=== PATIENT | male | born 1945 | race Two or more races ===

== ENCOUNTER → 2022-10-14 | Day surgery (SDC) | payer OTHER, MEDICAID ==
[~2022-10-14] VITALS: Ht 177.8 cm; Wt 64.4 kg
[~2022-10-14] MED LIST: CIPROFLOXACIN 400MG/200ML 200 ML IV ONE; DONE5TAB80 PO; DORZ2SOL18 OP; DexAMETHasone SOD PHOS 10MG/1ML VIAL INJ ONE; ETOMIDATE (2MG/ML) 20ML VIAL IV ONE; HYDROmorphone HCL 2 MG/ML VL/or syr IV PRN; LABETALOL HCL 5 MG/ML 4ML SYRINGE IV PRN; LEVE100012 PO; LISI20TA56 PO; MEPERIDINE HCL (50 MG/ML) 1 ML VIAL ONE; MIDAZOLAM HCL 2MG/2ML 2ml VIAL (1mg/ml) IV PRN; MIDAZOLAM HCL 2MG/2ML 2ml VIAL (1mg/ml) ONE; MORPHINE SULFATE 4 MG/ML SYR/VIAL IV PRN; ONDANSETRON HCL 4 MG/2 ML VIAL IV ONE; ONDANSETRON HCL 4 MG/2 ML VIAL IV PRN; PROPOFOL 10 MG/ML 20 ML IV ONE; SUCCINYLCHOLINE CHLORIDE 20 MG/ML 10ML VIAL IV ONE; ePHEDrine SULFATE 50 MG/ML AMP IV PRN; fentaNYL CITRATE 100 MCG/2 ML VL ONE
[2022-10-14 11:45] VITALS: TEMP 97.3; O2SAT 98
[2022-10-14 12:50] VITALS: BP 135/72; PULSE 64; RESP 12; O2SAT 94
== END | disposition home or self-care (01) ==
LOC: SUR 08:19
PROVIDERS: ATTEND Urology
DX: D49.4 Neoplasm of unspecified behavior of bladder (principal); I63.9 Cerebral infarction, unspecified; I10 Essential (primary) hypertension; Z95.0 Presence of cardiac pacemaker; Z88.0 Allergy status to penicillin; Z91.041 Radiographic dye allergy status; Z79.899 Other long term (current) drug therapy; Z98.890 Other specified postprocedural states
CPT/HCPCS: 52224; J0330; J0744; J1100; J2175; J2250; J2405; J2704; J3010

== ENCOUNTER 2022-10-27 02:53 | Inpatient (IN) | payer OTHER, MEDICAID ==
[~2022-10-27] VITALS: Ht 177.8 cm; Wt 68.8 kg
[~2022-10-27 02:53] MED LIST changes: -CIPROFLOXACIN 400MG/200ML 200 ML IV ONE; -DexAMETHasone SOD PHOS 10MG/1ML VIAL INJ ONE; -ETOMIDATE (2MG/ML) 20ML VIAL IV ONE; -HYDROmorphone HCL 2 MG/ML VL/or syr IV PRN; -LABETALOL HCL 5 MG/ML 4ML SYRINGE IV PRN; -MEPERIDINE HCL (50 MG/ML) 1 ML VIAL ONE; -MIDAZOLAM HCL 2MG/2ML 2ml VIAL (1mg/ml) IV PRN; -MIDAZOLAM HCL 2MG/2ML 2ml VIAL (1mg/ml) ONE; -MORPHINE SULFATE 4 MG/ML SYR/VIAL IV PRN; -ONDANSETRON HCL 4 MG/2 ML VIAL IV ONE; -ONDANSETRON HCL 4 MG/2 ML VIAL IV PRN; -PROPOFOL 10 MG/ML 20 ML IV ONE; -SUCCINYLCHOLINE CHLORIDE 20 MG/ML 10ML VIAL IV ONE; -ePHEDrine SULFATE 50 MG/ML AMP IV PRN; -fentaNYL CITRATE 100 MCG/2 ML VL ONE
[2022-10-27] MEDS ORDERED: ONDANSETRON HCL 4 MG/2 ML VIAL IV ONE (04:00)
[2022-10-27 04:01] LABS: Urine Bacteria NONE SEEN /hpf (None Seen); Urine Blood 3+ /uL (Negative); Urine Clarity CLOUDY (Clear); Urine Color Red (Yellow); Urine Protein, UAD 3+ (Negative); Urine Specific Gravity 1.032 (1.001-1.035); Urine WBC 75 /hpf (0 - 3)
[2022-10-27 04:09] LABS: Basophils # (auto) 0.1 10 ^3/uL (0-0.2); Basophils % (auto) 0.4 % (0.0-2.0); Eosinophils # (auto) 0.2 10 ^3/uL (0-0.8); Eosinophils % (auto) 0.8 % (0.0-7.0); Hematocrit 43.7 % (41.0-53.0); Hemoglobin 14.6 g/dL (13.5-17.5); Lymphocytes # (auto) 2.5 10 ^3/uL (0.4-5.4); Lymphocytes % (auto) 12.3 % (10.0-50.0); Mean Corpuscular Hemoglobin 33.3 pg (28.0-32.0); Mean Corpuscular Hgb Conc. 33.3 g/dL (32.0-36.0); Mean Corpuscular Volume 100.2 fL (80.0-100.0); Monocytes # (auto) 0.9 10 ^3/uL (0-1.3); Monocytes % (auto) 4.3 % (0.0-12.0); Neutrophils # (auto) 16.9 10 ^3/uL (1.6-8.6); Neutrophils % (auto) 82.2 % (37.0-80.0); Nucleated Red Blood Cells % 0.1 %; Red Blood Cells 4.36 10^6/uL (4.5-5.90); Red Cell Distribution Width 15.1 % (11.8-14.3); White Blood Cell 20.6 10^3/uL (4.4-10.8)
[2022-10-27 04:27] LABS: Alanine Aminotransferase 17 U/L (7-40); Albumin 4.6 g/dL (3.2-4.8); Alkaline Phosphatase 99 U/L (46-116); Anion Gap 9.3 (5-15); Aspartate Aminotransferase 18 U/L (13-40); BUN/Creatinine Ratio 23.1 (10.0-20.0); Bilirubin, Total 0.8 mg/dL (0.2-1.0); Blood Urea Nitrogen 24 mg/dL (9-23); Calcium 9.8 mg/dL (8.7-10.4); Carbon Dioxide 21.7 mmol/L (20-30); Chloride 104 mmol/L (98-107); Glucose 200 mg/dL (74-106); Potassium 4.1 mmol/L (3.5-5.1); Sodium 135 mmol/L (136-145); Total Protein 7.6 g/dL (5.7-8.2)
[2022-10-27] MEDS ORDERED: fentaNYL CITRATE 100 MCG/2 ML VL IV ONE (05:15)
[2022-10-27] MEDS ORDERED: cefTRIAXone 1GM/50ML D5W 50 ML IV ONE ×2 (05:15→18:39)
[2022-10-27 05:47] LABS: Lactic Acid w/Reflex 3.5 mmol/L (0.4-2.0)
[2022-10-27] MEDS ORDERED: ACETAMINOPHEN 325 MG TAB PO PRN (06:30)
[2022-10-27] MEDS ORDERED: levoFLOXacin 500 MG TAB PO ONE (06:30)
[2022-10-27] MEDS ORDERED: hydrALAZINE HCL 10 MG TAB PO PRN (06:30)
[2022-10-27] MEDS ORDERED: LIDOCAINE HCL 2% TOP JELLY 5ML TOP ONE (06:30)
[2022-10-27] MEDS ORDERED: LIDOCAINE 2% JELLY 11ml (GLYDO) ONE (07:05)
[2022-10-27] MEDS ORDERED: SODIUM CHLORIDE 0.9% 1,900 ML IV ONE ×2 (08:45→16:00)
[2022-10-27 08:51] VITALS: PULSE 86; RESP 19; O2SAT 97
[2022-10-27] MEDS: HYDROcodone-ACET 5/325MG TAB PO PRN ×2 (09:07→14:23)
[2022-10-27 09:16] LABS: Basophils # (auto) 0 10 ^3/uL (0-0.2); Basophils % (auto) 0.1 % (0.0-2.0); Eosinophils # (auto) 0 10 ^3/uL (0-0.8); Eosinophils % (auto) 0.1 % (0.0-7.0); Hematocrit 40.8 % (41.0-53.0); Hemoglobin 13.6 g/dL (13.5-17.5); Lymphocytes # (auto) 0.6 10 ^3/uL (0.4-5.4); Lymphocytes % (auto) 4.8 % (10.0-50.0); Mean Corpuscular Hemoglobin 33.2 pg (28.0-32.0); Mean Corpuscular Hgb Conc. 33.4 g/dL (32.0-36.0); Mean Corpuscular Volume 99.2 fL (80.0-100.0); Monocytes # (auto) 0.3 10 ^3/uL (0-1.3); Monocytes % (auto) 2.8 % (0.0-12.0); Neutrophils # (auto) 10.8 10 ^3/uL (1.6-8.6); Neutrophils % (auto) 92.2 % (37.0-80.0); Red Blood Cells 4.11 10^6/uL (4.5-5.90); Red Cell Distribution Width 14.9 % (11.8-14.3); White Blood Cell 11.7 10^3/uL (4.4-10.8)
[2022-10-27] MEDS ORDERED: cefTRIAXone 1GM/50ML D5W 50 ML IV SCH (10:00)
[2022-10-27] MEDS ORDERED: levETIRAcetam 500 MG TAB PO SCH (10:00)
[2022-10-27] MEDS: SODIUM CHLORIDE 0.9% 1,000 ML IV SCH ×2 (11:24→21:33)
[2022-10-27 11:27] LABS: Lactic Acid w/Reflex 2.8 mmol/L (0.4-2.0)
[2022-10-27 12:00] LABS: INR 1.03 (0.9-1.15); Partial Thromboplastin Time 29.4 SEC (24.5-34.5); Prothrombin Time 10.8 sec (9.3-11.8)
[2022-10-27] MEDS: ONDANSETRON HCL 4 MG/2 ML VIAL IV PRN (15:11)
[2022-10-27] MEDS ORDERED: PROPOFOL 10 MG/ML 20 ML IV ONE (16:19)
[2022-10-27 16:21] VITALS: BP 124/80; PULSE 79; RESP 18; TEMP 98.3; O2SAT 97
[2022-10-27 16:38] VITALS: BP 124/80; PULSE 80; RESP 79; TEMP 98.3; O2SAT 97
[2022-10-27] MEDS ORDERED: BUPIVACAINE 0.5% P/F INJ 10 ML VIAL ONE (18:18)
[2022-10-27] MEDS ORDERED: fentaNYL CITRATE 100 MCG/2 ML VL ONE (18:22)
[2022-10-27] MEDS ORDERED: ONDANSETRON HCL 4 MG/2 ML VIAL ONE (18:22)
[2022-10-27] MEDS ORDERED: MIDAZOLAM HCL 2MG/2ML 2ml VIAL (1mg/ml) ONE (18:22)
[2022-10-27] MEDS ORDERED: ASPI325T4 PO (19:12)
[2022-10-27] MEDS ORDERED: HAWTCAP PO (19:12)
[2022-10-27] MEDS ORDERED: SIMV10TA20 PO (19:14)
[2022-10-27] MEDS ORDERED: LACO100T3 PO (19:14)
[2022-10-27] MEDS ORDERED: TEST200I32 TOP (19:15)
[2022-10-27] MEDS ORDERED: MELA10CA OR (19:16)
[2022-10-27] MEDS ORDERED: SAW160CA3 PO (19:16)
[2022-10-27] MEDS ORDERED: [UNRECOGNIZED DRUG - CODE] XX (19:16)
[2022-10-27] MEDS ORDERED: LIDOCAINE 2% (LOCAL ANESTH.) PF 5ml SDV ONE ×2 (19:29→19:44)
[2022-10-27] MEDS: LIDOCAINE 4MG/ML IV SOLN 500 ML IV SCH (19:45)
[2022-10-27 20:00] VITALS: BP 119/68; PULSE 78; RESP 18; TEMP 97.5; O2SAT 96
[2022-10-27] MEDS ORDERED: MORPHINE SULFATE INJ 2 MG/ml SYRG IV PRN (20:30)
[2022-10-27] MEDS ORDERED: METOCLOPRAMIDE HCL 5MG/ml INJ 2ml VIAL IV PRN (20:30)
[2022-10-27] MEDS ORDERED: HYDROmorphone HCL 2 MG/ML VL/or syr IV PRN ×2 (20:30)
[2022-10-27] MEDS: DONEPEZIL HYDROCHLORIDE 5 MG TAB PO SCH (21:27)
[2022-10-27] MEDS: MELATONIN 5 MG TAB PO PRN (21:27)
[2022-10-27] MEDS: levETIRAcetam 500 MG TAB PO SCH (21:27)
[2022-10-27 22:00] VITALS: BP 119/68; PULSE 78; RESP 18; TEMP 97.5; O2SAT 96
[2022-10-28 05:00] VITALS: BP 121/71; PULSE 79; RESP 18; TEMP 98.2; O2SAT 99
[2022-10-28] MEDS: SODIUM CHLORIDE 0.9% 1,000 ML IV SCH ×3 (06:11→21:25)
[2022-10-28 06:22] LABS: Basophils # (auto) 0 10 ^3/uL (0-0.2); Eosinophils # (auto) 0.1 10 ^3/uL (0-0.8); Hemoglobin 11.7 g/dL (13.5-17.5); Mean Corpuscular Hgb Conc. 34.2 g/dL (32.0-36.0); Monocytes # (auto) 0.5 10 ^3/uL (0-1.3)
[2022-10-28] MEDS: HYDROcodone-ACET 5/325MG TAB PO PRN ×3 (06:23→22:35)
[2022-10-28 06:24] LABS: Basophils % (auto) 0.4 % (0.0-2.0); Chloride 112 mmol/L (98-107); Eosinophils % (auto) 0.8 % (0.0-7.0); Hematocrit 34.2 % (41.0-53.0); Lymphocytes # (auto) 1.4 10 ^3/uL (0.4-5.4); Lymphocytes % (auto) 18.2 % (10.0-50.0); Mean Corpuscular Hemoglobin 34.7 pg (28.0-32.0); Mean Corpuscular Volume 101.2 fL (80.0-100.0); Monocytes % (auto) 6.7 % (0.0-12.0); Neutrophils # (auto) 5.7 10 ^3/uL (1.6-8.6); Neutrophils % (auto) 73.9 % (37.0-80.0); Potassium 4.7 mmol/L (3.5-5.1); Red Blood Cells 3.38 10^6/uL (4.5-5.90); Red Cell Distribution Width 15.2 % (11.8-14.3); Sodium 142 mmol/L (136-145); White Blood Cell 7.7 10^3/uL (4.4-10.8)
[2022-10-28 06:25] LABS: Calcium 8.4 mg/dL (8.5-10.1)
[2022-10-28 06:29] LABS: Glucose 114 mg/dL (74-106)
[2022-10-28 06:30] LABS: BUN/Creatinine Ratio 16.7 (10.0-20.0); Blood Urea Nitrogen 14 mg/dL (9-23)
[2022-10-28 08:00] VITALS: BP 109/62; PULSE 70; PULSE 81; RESP 16; TEMP 98.3; O2SAT 96; O2SAT 97
[2022-10-28] MEDS: levETIRAcetam 500 MG TAB PO SCH ×2 (08:53→21:09)
[2022-10-28] MEDS: amLODIPine BESYLATE 5 MG TAB PO SCH (08:54)
[2022-10-28 09:12] LABS: Platelet Estimate Decreased
[2022-10-28 09:13] LABS: Macrocytosis Slight
[2022-10-28] MEDS: ONDANSETRON HCL 4 MG/2 ML VIAL IV PRN ×2 (10:27→22:35)
[2022-10-28 12:00] VITALS: BP 107/65; PULSE 81; RESP 18; TEMP 98.2; O2SAT 96
[2022-10-28 16:00] VITALS: BP 121/63; PULSE 82; RESP 18; TEMP 98; O2SAT 94
[2022-10-28] MEDS ORDERED: TAMSULOSIN HYDROCHLORIDE 0.4 MG CAP PO SCH (18:00)
[2022-10-28] MEDS: LIDOCAINE 4MG/ML IV SOLN 500 ML IV SCH (19:45)
[2022-10-28 20:00] VITALS: PULSE 79; PULSE 94; RESP 22; O2SAT 95
[2022-10-28] MEDS: DONEPEZIL HYDROCHLORIDE 5 MG TAB PO SCH (21:09)
[2022-10-28] MEDS: MELATONIN 5 MG TAB PO PRN (21:11)
[2022-10-28 21:55] VITALS: BP 123/70; PULSE 79; RESP 22; TEMP 98.2; O2SAT 95
[2022-10-29] MEDS: HYDROcodone-ACET 5/325MG TAB PO PRN (04:48)
[2022-10-29 05:23] VITALS: BP 138/88; PULSE 79; RESP 22; TEMP 98.3; O2SAT 93
[2022-10-29 08:15] VITALS: O2SAT 97
[2022-10-29 08:20] VITALS: PULSE 71
[2022-10-29 09:00] VITALS: BP 138/76; PULSE 79; RESP 18; TEMP 97.9; O2SAT 97
[2022-10-29] MEDS: levETIRAcetam 500 MG TAB PO SCH (09:26)
[2022-10-29] MEDS: amLODIPine BESYLATE 5 MG TAB PO SCH (09:28)
[2022-10-29] MEDS ORDERED: TAMSULOSIN HYDROCHLORIDE 0.4 MG CAP PO ONE (10:45)
[2022-10-29] MEDS ORDERED: HYOS0.1289 PO (11:05)
[2022-10-29] MEDS ORDERED: HYOSCYAMINE SULF 0.125 MG ODT TAB PO PRN (11:15)
[2022-10-29 13:00] VITALS: BP 133/80; PULSE 82; RESP 17; TEMP 97.9; O2SAT 96
== END 2022-10-29 16:20 | disposition home or self-care (01) | DRG 669 ==
LOC: ER 02:53 → TELE 06:20 → TELE-EAST 15:58
PROVIDERS: ADMIT Nurse Practitioner Family; ATTEND Hospitalist
PROC: 0TCB8ZZ Extirpation of Matter from Bladder, Via Natural or Artificial Opening Endoscopic (ICD-10-PCS; 2022-10-27)
PROC: 0T5B8ZZ Destruction of Bladder, Via Natural or Artificial Opening Endoscopic (ICD-10-PCS; principal; 2022-10-27 18:44)
DX: R33.9 Retention of urine, unspecified (principal); N39.0 Urinary tract infection, site not specified; R31.0 Gross hematuria; D72.829 Elevated white blood cell count, unspecified; I10 Essential (primary) hypertension; I49.5 Sick sinus syndrome; I48.91 Unspecified atrial fibrillation; F03.90 Unspecified dementia, unspecified severity, without behavioral disturbance, psychotic disturbance, mood disturbance, and anxiety; E78.5 Hyperlipidemia, unspecified; Z86.73 Personal history of transient ischemic attack (TIA), and cerebral infarction without residual deficits; Z85.51 Personal history of malignant neoplasm of bladder; Z88.0 Allergy status to penicillin; Z88.8 Allergy status to other drugs, medicaments and biological substances
CPT/HCPCS: 36415; 71045; 71250; 74176; 80048; 80053; 81001; 83605; 85025; 85610; 85730; 86850; 86900; 86901; 87040; 87081; 87086; 96361; 96374; 96375; 97110; 97116; 97163; 97530; G0378; J0696; J2001; J2250; J2405; J2704; J3490

== ENCOUNTER 2023-03-27 20:02 | Emergency (ER) | payer OTHER, MEDICAID ==
[~2023-03-27] VITALS: Ht 185.4 cm; Wt 86.2 kg
[~2023-03-27 20:02] MED LIST changes: +HAWTCAP PO; +HYOS0.1289 PO; +LACO100T3 PO; +MELA10CA OR; +SAW160CA3 PO; +SIMV10TA20 PO; +TEST200I32 TOP
[2023-03-27 21:02] VITALS: PULSE 86; RESP 19; O2SAT 92
[2023-03-27] MEDS ORDERED: levETIRAcetam 1000 mg/100ml 100 ML IV ONE (21:30)
[2023-03-27 21:44] LABS: Basophils # (auto) 0.1 10 ^3/uL (0-0.2); Basophils % (auto) 0.6 % (0.0-2.0); Eosinophils # (auto) 0.3 10 ^3/uL (0-0.8); Eosinophils % (auto) 2.9 % (0.0-7.0); Hematocrit 40.4 % (41.0-53.0); Hemoglobin 12.7 g/dL (13.5-17.5); Lymphocytes # (auto) 1.1 10 ^3/uL (0.4-5.4); Lymphocytes % (auto) 12.8 % (10.0-50.0); Mean Corpuscular Hemoglobin 29.4 pg (28.0-32.0); Mean Corpuscular Hgb Conc. 31.5 g/dL (32.0-36.0); Mean Corpuscular Volume 93.4 fL (80.0-100.0); Monocytes # (auto) 0.6 10 ^3/uL (0-1.3); Neutrophils # (auto) 6.5 10 ^3/uL (1.6-8.6); Neutrophils % (auto) 76.7 % (37.0-80.0); Nucleated Red Blood Cells % 0.1 %; Red Blood Cells 4.33 10^6/uL (4.5-5.90); Red Cell Distribution Width 17.7 % (11.8-14.3); White Blood Cell 8.5 10^3/uL (4.4-10.8)
[2023-03-27 21:56] LABS: Alanine Aminotransferase 35 U/L (7-40); Alkaline Phosphatase 103 U/L (46-116); Anion Gap 14 (5-15); Aspartate Aminotransferase 46 U/L (13-40); BUN/Creatinine Ratio 18.4 (10.0-20.0); Bilirubin, Total 0.3 mg/dL (0.2-1.0); Blood Urea Nitrogen 18 mg/dL (9-23); Carbon Dioxide 20 mmol/L (20-30); Chloride 108 mmol/L (98-107); Glucose 117 mg/dL (74-106); Magnesium 2.1 mg/dL (1.6-2.6); Potassium 3.8 mmol/L (3.5-5.1); Sodium 142 mmol/L (136-145); Total Protein 6.9 g/dL (5.7-8.2)
[2023-03-28] MEDS ORDERED: LACO100T3 PO (00:57)
[2023-03-28 01:02] VITALS: BP 121/60; PULSE 79; RESP 11; TEMP 98; O2SAT 96
== END 2023-03-28 01:16 | disposition home or self-care (01) ==
LOC: ER 20:02 → EDBD 20:02 → ER 03-28 01:16
DX: R56.9 Unspecified convulsions (principal); R07.89 Other chest pain
CPT/HCPCS: 36415; 70450; 71045; 80053; 83735; 84484; 85025; 93005; 96365; 99285; J1953

== ENCOUNTER 2023-05-23 15:15 | Emergency (ER) | payer OTHER, MEDICAID ==
[~2023-05-23] VITALS: Ht 177.8 cm; Wt 66.2 kg
[2023-05-23 15:36] VITALS: BP 123/79; PULSE 92; RESP 18; O2SAT 95
[2023-05-23 16:02] LABS: Urine Bacteria FEW /hpf (None Seen); Urine Blood 3+ /uL (Negative); Urine Clarity HAZY (Clear); Urine Color Yellow (Yellow); Urine Mucus FEW (None Seen); Urine Protein, UAD 1+ (Negative); Urine Specific Gravity 1.024 (1.001-1.035); Urine Urobilinogen Normal (Negative); Urine WBC 129 /hpf (0 - 3); Urine pH 5.5 (5.0-9.0)
[2023-05-23 16:34] LABS: Basophils # (auto) 0.1 10 ^3/uL (0-0.2); Basophils % (auto) 1.1 % (0.0-2.0); Eosinophils # (auto) 0.3 10 ^3/uL (0-0.8); Hemoglobin 14.2 g/dL (13.5-17.5); Lymphocytes # (auto) 1.4 10 ^3/uL (0.4-5.4); Mean Corpuscular Hemoglobin 29.3 pg (28.0-32.0); Mean Corpuscular Hgb Conc. 32.3 g/dL (32.0-36.0); Mean Corpuscular Volume 90.5 fL (80.0-100.0); Monocytes # (auto) 0.6 10 ^3/uL (0-1.3); Monocytes % (auto) 8.6 % (0.0-12.0); Neutrophils # (auto) 4.2 10 ^3/uL (1.6-8.6); Neutrophils % (auto) 65.3 % (37.0-80.0); Nucleated Red Blood Cells % 0.1 %; Red Blood Cells 4.86 10^6/uL (4.5-5.90); White Blood Cell 6.5 10^3/uL (4.4-10.8)
[2023-05-23 16:45] LABS: Chloride 109 mmol/L (98-107); Potassium 4.9 mmol/L (3.5-5.1); Sodium 139 mmol/L (136-145)
[2023-05-23 16:46] LABS: Anion Gap 2 (5-15); Calcium 9.7 mg/dL (8.7-10.4); Carbon Dioxide 28 mmol/L (20-30)
[2023-05-23 16:51] LABS: BUN/Creatinine Ratio 15.1 (10.0-20.0); Blood Urea Nitrogen 16 mg/dL (9-23); Glucose 83 mg/dL (74-106)
[2023-05-23] MEDS ORDERED: CIPR-173 PO (17:09)
== END 2023-05-23 18:54 | disposition home or self-care (01) ==
LOC: ER 15:15
DX: N39.0 Urinary tract infection, site not specified (principal); Z88.0 Allergy status to penicillin; Z91.041 Radiographic dye allergy status
CPT/HCPCS: 36415; 71045; 74176; 80048; 81001; 83605; 85025

== ENCOUNTER 2023-10-27 06:10 | Day surgery (SDC) | payer MEDICAID, OTHER ==
[~2023-10-27] VITALS: Ht 177.8 cm; Wt 67.6 kg
[~2023-10-27 06:10] MED LIST changes: +CRAN200C PO; -DORZ2SOL18 OP; +GINGPOW2 XX; -HYOS0.1289 PO; -LEVE100012 PO; +LEVE750T3 PO; +LISI2.5T47 PO; -LISI20TA56 PO; -MELA10CA OR; +MULT1TAB95 PO; -SAW160CA3 PO; -SIMV10TA20 PO; -TEST200I32 TOP
[2023-10-27] MEDS ORDERED: PROPOFOL 10 MG/ML 20 ML IV ONE (06:57)
[2023-10-27] MEDS ORDERED: GLYCOPYRROLATE 0.2 MG/ML 1ML VIAL ONE (06:57)
[2023-10-27] MEDS ORDERED: LIDOCAINE 2% (LOCAL ANESTH.) PF 5ml SDV ONE (06:58)
[2023-10-27] MEDS ORDERED: ONDANSETRON HCL 4 MG/2 ML VIAL ONE (06:58)
[2023-10-27] MEDS ORDERED: SUGAMMADEX 200mg/2ml Vial (100MG/ML) IV ONE (06:58)
[2023-10-27] MEDS ORDERED: DexAMETHasone SOD PHOS 10MG/1ML VIAL INJ ONE (06:58)
[2023-10-27] MEDS ORDERED: ROCURONIUM 10MG/ML 10ML VIAL IV ONE (06:58)
[2023-10-27] MEDS ORDERED: LIDOCAINE HCL 2% TOP JELLY 5ML TOP ONE (06:58)
[2023-10-27] MEDS ORDERED: mitoMYcin 40 MG in STERILE WATER 80 ML IS ONE (07:00)
[2023-10-27] MEDS ORDERED: KETAMINE 50mg/ML 1ml syringe ONE (07:00)
[2023-10-27] MEDS ORDERED: fentaNYL CITRATE 100 MCG/2 ML VL ONE (07:00)
[2023-10-27] MEDS ORDERED: CIPROFLOXACIN 400MG/200ML 200 ML IV ONE (07:25)
[2023-10-27 08:04] VITALS: PULSE 80; RESP 22; O2SAT 99
[2023-10-27 08:05] VITALS: TEMP 97.3
[2023-10-27] MEDS ORDERED: ONDANSETRON HCL 4 MG/2 ML VIAL IV PRN (08:15)
[2023-10-27] MEDS ORDERED: FLUMAZENIL 0.1 MG/ML INJ 10ML MDV IV PRN (08:15)
[2023-10-27] MEDS ORDERED: HYDROmorphone HCL 2 MG/ML VL/or syr IV PRN (08:15)
[2023-10-27] MEDS ORDERED: fentaNYL CITRATE 100 MCG/2 ML VL IV PRN (08:15)
[2023-10-27] MEDS ORDERED: NALOXONE HCL 0.4 MG/ML VIAL IV PRN (08:15)
[2023-10-27] MEDS ORDERED: oxyCODONE HCL 5MG TAB PO PRN (08:15)
[2023-10-27] MEDS ORDERED: hydrALAZINE HCL 20 MG/ML VL IV PRN (08:15)
[2023-10-27] MEDS ORDERED: ePHEDrine SULFATE 50 MG/ML AMP IV PRN (08:15)
[2023-10-27 08:50] VITALS: BP 161/86; PULSE 75; RESP 13; O2SAT 95
== END 2023-10-27 09:18 | disposition home or self-care (01) ==
LOC: SUR 06:10
PROVIDERS: ATTEND Urology
DX: N32.89 Other specified disorders of bladder (principal); D09.0 Carcinoma in situ of bladder; C67.9 Malignant neoplasm of bladder, unspecified; I10 Essential (primary) hypertension; I48.91 Unspecified atrial fibrillation; Z86.73 Personal history of transient ischemic attack (TIA), and cerebral infarction without residual deficits; Z88.0 Allergy status to penicillin; Z88.8 Allergy status to other drugs, medicaments and biological substances; Z95.0 Presence of cardiac pacemaker; Z98.890 Other specified postprocedural states; Z91.041 Radiographic dye allergy status; Z83.3 Family history of diabetes mellitus; Z80.8 Family history of malignant neoplasm of other organs or systems
CPT/HCPCS: 51720; 52234; 52500; 88305; 88342; J0744; J1100; J2001; J2405; J2704; J9280

== ENCOUNTER 2023-12-21 17:48 | Inpatient (IN) | payer OTHER ==
[~2023-12-21] VITALS: Ht 177.8 cm; Wt 79.5 kg
[2023-12-21 18:21] VITALS: PULSE 110; RESP 20; O2SAT 100
--- NOTE | 2023-12-21 18:40 | ED.PDOC ---
HPI (NEURO) HPI Comments HPI: Poor Historian. 78-year-old male brought in by ambulance from home for a witnessed tonic-clonic seizure by the . Lasted at least 1 minute. Patient has history of seizure disorder on Keppra. Most recently seen by Neurology approximately three months ago. Patient also has a history of bladder cancer. does not know much details. They state compliance with the medications. Ms. History of suspected metastatic disease possibly to the pancreas still being worked up. Past Medcial History: Hypertension, bladder cancer, CVA, seizure disorder Past Surgical History: Pacemaker, iliac aneurysm clip repair REVIEW OF SYSTEMS: CONSTITUTIONAL: Denies acute: fever, diaphoresis, chills, HEAD: Denies acute: headache, photophobia Eyes: Denies acute: Double vision, vision loss, eye pain, eye discharge. EARS: Denies acute: tinnitus, hearing loss, ear discharge, ear pain, THROAT: Denies acute: sore throat, swelling, difficulty swallowing , pain with swallowing, change in voice. NECK: Denies acute: neck pain, neck swelling, stiff neck. HEART: Denies acute : chest pain, palpitations, LUNGS: Denies acute: SOB, wheezing, cough, hemoptysis ABDOMEN: Denies acute: abdominal pain, Nausea, Vomiting, diarrhea, melena , hematemesis, hematochezia SKIN: Denies acute: rash, redness, lesions, itchiness. EXTREMITIES: Denies acute: calf pain, numbness, tingling, weakness, denies pain in extremity. Denies acute: Low back pain. Neuro: Denies acute: focal neurological deficit, motor or sensory focal neurological deficit, cauda equina like symptoms. : Denies acute: dysuria, hematuria, flank pain, increase in urinary frequency. PSYCH: Denies acute: hallucination, suicidal ideation, homicidal ideation. PHYSICAL EXAM: General: no acute distress appears to be postictal. Head: normocephalic, atraumatic. Neck: supple, trachea is midline, no swelling. Throat: Normal phonation. Eyes:, no erythema, no purulent discharge, no proptosis, no icterus. Heart: regular rate, regular rhythm, no significant murmur appreciated. Lungs: no apparent respiratory distress, No wheezing, no rhonchi, no crackles. No stridors Clear to auscultation bilaterally. Abdomen: non tender to palpation, non distended, soft, no guarding, no rebound, + bowel sounds. Neuro: After witnessed seizure here in the ED. Patient was able to open his eyes and rotate his head but he is not vocalizing anything. He is not following command. He appears postictal still. Skin: no petechia, no purpura, no cyanosis, non-pale, not jaundice. Lower extremities: --no - Pitting edema no deformity, no focal swelling, no calf TTP. Makes eye contact. moves all four extremities. Face: no apparent facial droop. Chief Complaint: Seizure Time Seen by MD: 18:02 Primary Care Provider: Linda Reviewed Notes: Nurses Notes, Medications, Allergies Information Source: Emergency Med Personnel, Spouse Mode of Arrival: Ambulatory Past Medical History PAST MEDICAL HISTORY: Seizures Surgical History: Pt Confused Family History Family History: Pt Confused Social History Smoker: Pt Confused Alcohol: Pt Confused Drugs: Pt Confused Lives In: Home Was a procedure done? Was a procedure done?: No Differential Diagnosis (SZ) Seizure: Other (SEIZUREDDX include not limited to CVA, cerebellar ischemia/infarct, carotid stenosis, vertebral/carotid artery dissection,, vertebrobasillary insufficiency, Intracranial mass/infection/bleed, encephalopathy, elctrolyte abnormality, thyroid disease, multiple sclerosis, hypoglycemia, drug toxicity, cardiac arrhythmia, sub-theraputic anti-convulsion medications, known seizure disorder, pseudo-seizure.) X-Ray, Labs, Meds, VS Vital Signs Date Time Temp Pulse Resp B/P (MAP) Pulse Ox O2 Delivery O2 Flow Rate FiO2 12/21/23 22:08 110 18 100 10.0 12/21/23 21:33 89 12/21/23 19:53 93 20 100 Simple Mask* 12 N/A 12/21/23 19:53 98.9 93 20 127/63 (84) 100 98.9 12/21/23 18:31 98.0 105 22 134/66 (88) 99 98.0 12/21/23 18:21 110 20 100 Simple Mask* 10 99 12/21/23 18:09 98.1 104 18 173/90 (117) 98 Lab Test 12/21/23 22:24 12/21/23 22:15 12/21/23 21:55 12/21/23 20:56 Range/Units Urine Color Light-yellow Yellow Urine Clarity Clear Clear Urine pH 5.0 5.0-9.0 Urine Specific [place] 1.017 1.001-1.035 Urine Protein 1+ H Negative Urine Ketones Negative Negative Urine Blood 1+ H Negative /uL Urine Nitrite Negative Negative Urine Bilirubin Negative Negative Urine Urobilinogen Normal Negative mg/dL Urine Leukocyte Esterase Negative Negative /uL Urine RBC 6 0 - 3 /hpf Urine WBC 9 0 - 3 /hpf Urine Squamous Epithelial Cells Few <5 /hpf Urine Bacteria None seen None Seen /hpf Urine Mucus Few None Seen Urine Glucose Normal Normal mg/dL Urine Opiates Screen Neg NEGATIVE Urine Fentanyl Screen Neg NEGATIVE Urine Barbiturates Screen Neg NEGATIVE Urine Phencyclidine Screen Neg NEGATIVE Urine Amphetamines Screen Neg NEGATIVE Urine Benzodiazepines Screen Neg NEGATIVE Urine Cocaine Screen Neg NEGATIVE Urine Cannabinoids Screen Pos NEGATIVE Troponin I High Sensitivity 43 </=54 ng/L Ammonia < 10 L 11-32 umol/L Lactic Acid Level 1.3 0.4-2.0 mmol/L Test 12/21/23 19:44 12/21/23 18:47 Range/Units Troponin I High Sensitivity 27 20 </=54 ng/L White Blood Count 7.4 4.4-10.8 10^3/uL Red Blood Count 4.50 4.5-5.90 10^6/uL Hemoglobin 14.8 13.5-17.5 g/dL Hematocrit 43.7 41.0-53.0 % Mean Corpuscular Volume 97.2 80.0-100.0 fL Mean Corpuscular Hemoglobin 32.9 H 28.0-32.0 pg Mean Corpuscular Hemoglobin Concent 33.8 32.0-36.0 g/dL Red Cell Distribution Width 15.8 H 11.8-14.3 % Platelet Count 125 L 140-450 10^3/uL Mean Platelet Volume 8.8 6.9-10.8 fL Neutrophils (%) (Auto) 85.8 H 37.0-80.0 % Lymphocytes (%) (Auto) 7.9 L 10.0-50.0 % Monocytes (%) (Auto) 5.0 0.0-12.0 % Eosinophils (%) (Auto) 0.7 0.0-7.0 % Basophils (%) (Auto) 0.6 0.0-2.0 % Neutrophils # (Auto) 6.3 1.6-8.6 10 ^3/uL Lymphocytes # (Auto) 0.6 0.4-5.4 10 ^3/uL Monocytes # (Auto) 0.4 0-1.3 10 ^3/uL Eosinophils # (Auto) 0.1 0-0.8 10 ^3/uL Basophils # (Auto) 0 0-0.2 10 ^3/uL Nucleated Red Blood Cells 0.0 % Sodium Level 144 136-145 mmol/L Potassium Level 4.0 3.5-5.1 mmol/L Chloride Level 112 H 98-107 mmol/L Carbon Dioxide Level 25 20-31 mmol/L Anion Gap 7 5-15 Blood Urea Nitrogen 26 H 9-23 mg/dL Creatinine 0.90 0.700-1.30 mg/dL Glomerular Filtration Rate Calc 87 >90 mL/min BUN/Creatinine Ratio 28.9 H 10.0-20.0 Serum Glucose 163 H 74-106 mg/dL Lactic Acid Level 2.7 *H 0.4-2.0 mmol/L Calcium Level 9.4 8.7-10.4 mg/dL Magnesium Level 1.8 1.6-2.6 mg/dL Total Bilirubin 0.4 0.2-1.0 mg/dL Aspartate Amino Transferase (AST) 21 13-40 U/L Alanine Aminotransferase (ALT) 21 7-40 U/L Alkaline Phosphatase 99 46-116 U/L Creatine Kinase 69 46-171 U/L B-Type Natriuretic Peptide 405.22 0-100 pg/mL Total Protein 7.0 5.7-8.2 g/dL Albumin 4.1 3.2-4.8 g/dL Current Medications Medications (Trade) Dose Ordered Sig/Yadira Route Start Time Stop Time Status Last Admin Lorazepam (Ativan Inj) 1 mg ONCE ONCE IV 12/21/23 18:15 12/21/23 18:38 DC 12/21/23 18:49 Levetiracetam 100 ml @ 400 mls/hr ONCE ONCE IV 12/21/23 18:15 12/21/23 18:38 DC 12/21/23 18:49 Sodium Chloride 1,000 ml @ 1,000 mls/hr Q1H ONCE IV 12/21/23 18:15 12/21/23 19:14 DC 12/21/23 18:49 Sodium Chloride 1,000 ml @ 75 mls/hr [id number] ONCE IV 12/21/23 21:45 12/22/23 11:04 12/21/23 23:[address] [address] Ph: [phone] DIAGNOSTIC IMAGING Diagnostic Imaging Report : [id number] Signed PATIENT: DANNY RUIZ ACCT: [id number] UNIT: [id number] : 1945 LOC: TELE ROOM / BED: [address] [place] [address] AGE / SEX: 78 / M ADM STATUS: ADM IN SERVICE 34 ORDERING PHYSICIAN: ARIEL TEE DO PROCEDURE(s): ABPL - CT AB PEL WO CON-NO ORAL OR IV REASON: Seizure ORDER NUMBER(s): [id number], ACCESSION NUMBER(s): [id number] Exam: CT CT AB PEL WO CON-NO ORAL OR IV History: Seizure Comparison Study: 05/23/23 Technique: Multidetector spiral CT of the abdomen was performed from lung bases to pubic symphysis. Imaging was performed without IV contrast. Axial, coronal and sagittal multiplanar reformats were obtained from the axial data set by the technologist. Radiation Dose : 1. Abdomen/Pelvis: CTDIvol 9 mGy, DLP 511 mGy*cm. Findings: Evaluation of solid organs is limited due to lack of intravenous contrast use. Lung Bases: No acute or significant lung base finding. Normal heart size. No pleural or pericardial effusion. Subcentimeter calcified nodule in the right lower lobe. Liver: The liver is normal in size. Subcentimeter hypodensity in the right hepatic lobe. Gallbladder and Biliary Tree: Unremarkable Spleen: Unremarkable Pancreas: The pancreas is grossly normal in appearance. Adrenal Glands: Unremarkable Kidneys: Kidneys are grossly normal without calculi or hydronephrosis. Bladder: Grossly unremarkable for degree of distention. Bowel: The stomach is grossly normal in appearance. Small bowel and colon are normal in caliber and distribution. The appendix is not visualized; however, no secondary findings of acute appendicitis identified. Ascites: Absent Lymphadenopathy: No mesenteric, retroperitoneal or periportal lymphadenopathy. Abdominal Wall and Mesentery: Unremarkable. Vasculature: Infrarenal abdominal aortic stent with extension into the bilateral common iliac arteries. 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 Pelvic Organs: Unremarkable Musculoskeletal: No aggressive focal bony lesions, acute fractures or dislocation. IMPRESSION: No acute abdominal or pelvic findings or significant interval change. 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 END IMPRESSION: ATED BY: RIVERA ARIZA DO DICTATED DATE/TIME: 12/22/23124 SIGNED BY: RIVERA ARIZA DO SIGNED DATE/TIME: 12/22/23124 CC: [place] [id number] Ph: [phone] DIAGNOSTIC IMAGING Diagnostic Imaging Report : [id number] Signed PATIENT: DANNY RUIZ ACCT: [id number] UNIT: [id number] : 1945 LOC: ER ROOM / BED: / AGE / SEX: 78 / M ADM STATUS: REG ER SERVICE 02 ORDERING PHYSICIAN: ARIEL TEE DO PROCEDURE(s): HWOCT - HEAD WITHOUT CONTRAST REASON: ORDER NUMBER(s): [id number], ACCESSION NUMBER(s): [id number] EXAM: CT HEAD WITHOUT CONTRAST INDICATION: BARRIE TECHNIQUE: CT of the head without intravenous contrast. Radiation Dose Information: CT Dose: CTDI volume is 178.24 mGy. Dose-length product is 4239.81 mGy*cm The dose indicators for CT are the volume Computed Tomography (CT) Dose Index (CTDIvol) and the Dose Length Product (DLP), and are measured in units of mGy and mGy-cm, respectively. These indicators are not patient dose, but values generated from the CT scanner acquisition factors. The report includes radiation exposure data for exposures received during this examination. COMPARISON: None FINDINGS: There is no evidence of acute intracranial hemorrhage, extra-axial collection, mass effect, midline shift, herniation or hydrocephalus. The ventricles, sulci and cisterns are age appropriate. The rivera-white differentiation is intact. Patchy periventricular and subcortical white matter hypoattenuation is nonspecific but may be related to small vessel ischemic disease. The visualized paranasal sinuses and mastoid air cells are clear. The surrounding soft tissues and osseous structures are unremarkable. IMPRESSION: 1. Best images possible because of continuous patient motion. 2. No acute intracranial hemorrhage. 3. No CT findings to suggest territorial ischemia. 4. Recommend repeat study when patient is more cooperative. ATED BY: CROW BYRNE Jr., DO DICTATED DATE/TIME: 12/21/232199 SIGNED BY: CROW BYRNE Jr., DO SIGNED DATE/TIME: 12/21/232199 CC: [place] [id number] Ph: [phone] DIAGNOSTIC IMAGING Diagnostic Imaging Report : [id number] Signed PATIENT: DANNY RUIZ ACCT: [id number] UNIT: [id number] : 1945 LOC: ER ROOM / BED: / AGE / SEX: 78 / M ADM STATUS: REG ER SERVICE 02 ORDERING PHYSICIAN: ARIEL TEE DO PROCEDURE(s): CXRP - CHEST PORTABLE REASON: BARRIE ORDER NUMBER(s): [id number], ACCESSION NUMBER(s): [id number] CHEST RADIOGRAPH Indication:SZ Technique: Single frontal view of the chest was obtained Comparison: XY CHEST XRAY 1 VIEW on DOS: 05/23/23, XY CHEST PORTABLE on DOS: 03/27/23, XY CHEST PORTABLE on DOS: 10/27/22 Findings/ IMPRESSION: Left-sided cardiac device with intact leads. Increased opacification in the left mid to lower lung zone concerning for developing airspace disease. No pneumothorax. No pleural effusions ATED BY: RIVERA ARIZA DO DICTATED DATE/TIME: 12/21/231848 SIGNED BY: RIVERA ARIZA DO SIGNED DATE/TIME: 12/21/231848 CC: Time of 1ST Reevaluation: 21:40 (The case was discussed with the admitting team (HPI, physical exam, labs and diagnostic tests that were available at the time of disposition, ED course, treatment plan) on the phone. They agreed to admit the patient to their service and assume care of this patient from this point forward. Nurse practitioner Tracy. ) Reevaluation 1ST: Unchanged Time of 2ND Reevaluation: 03:04 Reevaluation 2ND: Improved Patient Education/Counseling: Other Family Education/Counseling: Diagnosis, Treatment Comments Patient presented with the above HPI.---seizure---workup was initiated. patient was found with the above mentioned diagnosis. Patient was given: Ativan, Keppra, fluids, antibiotics for suspected aspiration pneumonia Patient ED course and VS have been stabilized. Patient has been reassessed in the ED and remained in a stable condition. Patient has been observed in the ED adequate length of time to insure improvement/stability. patient was admitted to the medicine team for further evaluation and treatment of their presentation. Patient continued to be somewhat postictal however he was able to get out of bed and walk around and was somewhat agitated and upset but he went back to bed and slept again. All the reports of any imaging studies that were ordered by myself were reviewed by myself. Departure 1 Departure Time of Disposition: 21:00 Impression: Primary Impression: Seizure Additional Impressions: Aspiration pneumonia Altered mental status Disposition: ADMITTED INPATIENT Admit to: Tele Condition: Guarded Discharged With: Self, Spouse Critical Care Note Critical Care Time?: Yes (45 min-critical care time only) ARIEL TEE DO Dec 21, 2023 18:40
[2023-12-21] MEDS: LORazepam 2MG/ML-1ML VIAL ONE (18:49)
[2023-12-21] MEDS: LORazepam 2MG/ML-1ML VIAL IV ONE ×2 (18:49→22:15)
[2023-12-21] MEDS: SODIUM CHLORIDE 0.9% 1,000 ML IV ONE ×2 (18:49→23:26)
[2023-12-21] MEDS: levETIRAcetam 1000 mg/100ml 100 ML IV ONE (18:49)
--- NOTE | 2023-12-21 18:52 | DVH ---
CHEST RADIOGRAPH Indication:SZ Technique: Single frontal view of the chest was obtained Comparison: XY CHEST XRAY 1 VIEW on DOS: 05/23/23, XY CHEST PORTABLE on DOS: 03/27/23, XY CHEST PORTABLE on DOS: 10/27/22 Findings/ IMPRESSION: Left-sided cardiac device with intact leads. Increased opacification in the left mid to lower lung zo ne concerning for developing airspace disease. No pneumothorax. No pleural effusions
[2023-12-21 19:05] LABS: Basophils # (auto) 0 10 ^3/uL (0-0.2); Basophils % (auto) 0.6 % (0.0-2.0); Eosinophils # (auto) 0.1 10 ^3/uL (0-0.8); Eosinophils % (auto) 0.7 % (0.0-7.0); Hematocrit 43.7 % (41.0-53.0); Hemoglobin 14.8 g/dL (13.5-17.5); Lymphocytes # (auto) 0.6 10 ^3/uL (0.4-5.4); Lymphocytes % (auto) 7.9 % (10.0-50.0); Mean Corpuscular Hemoglobin 32.9 pg (28.0-32.0); Mean Corpuscular Hgb Conc. 33.8 g/dL (32.0-36.0); Mean Corpuscular Volume 97.2 fL (80.0-100.0); Monocytes # (auto) 0.4 10 ^3/uL (0-1.3); Neutrophils # (auto) 6.3 10 ^3/uL (1.6-8.6); Neutrophils % (auto) 85.8 % (37.0-80.0); Platelet Count (auto) 125 10^3/uL (140-450); Red Cell Distribution Width 15.8 % (11.8-14.3); White Blood Cell 7.4 10^3/uL (4.4-10.8)
[2023-12-21 19:25] LABS: Alanine Aminotransferase 21 U/L (7-40); Albumin 4.1 g/dL (3.2-4.8); Alkaline Phosphatase 99 U/L (46-116); Anion Gap 7 (5-15); Aspartate Aminotransferase 21 U/L (13-40); BUN/Creatinine Ratio 28.9 (10.0-20.0); Blood Urea Nitrogen 26 mg/dL (9-23); Calcium 9.4 mg/dL (8.7-10.4); Carbon Dioxide 25 mmol/L (20-31); Chloride 112 mmol/L (98-107); Creatine Kinase IFCC 69 U/L (46-171); Glucose 163 mg/dL (74-106); Magnesium 1.8 mg/dL (1.6-2.6); Sodium 144 mmol/L (136-145)
[2023-12-21 19:26] LABS: Bilirubin, Total 0.4 mg/dL (0.2-1.0)
[2023-12-21] MEDS ORDERED: PIPERACILLIN-TAZOB 3.375GM 100 ML IV ONE (19:30)
[2023-12-21 19:36] LABS: Lactic Acid w/Reflex 2.7 mmol/L (0.4-2.0)
[2023-12-21 19:53] VITALS: PULSE 93; RESP 20; O2SAT 100
--- NOTE | 2023-12-21 21:49 | ECG ---
[facility] Test Date: 2023-12-21 Test Time: 21:33:30 Pat Name: DANNY RUIZ Department: ER Room: [address] [place] [address] Gender: M Lawn Technician: JOSHUA : 1945 Requested By: ARIEL TEE Order Number: [id number] Reading MD: Joseph Figueroa Measurements Intervals [place] Rate: 89 P: 69 HI: 199 QRS: 39 QRSD: 120 T: 90 QT: 397 QTc: 484 Interpretive Statements Sinus rhythm Nonspecific intraventricular conduction delay Borderline repolarization abnormality Baseline wander in lead(s) V1,V3,V6 Electronically Signed On 12-22-2023 15:00:50 PDT by Joseph Figueroa Please click the below link to view image of tracing.
--- NOTE | 2023-12-21 22:03 | DVH ---
EXAM: CT HEAD WITHOUT CONTRAST INDICATION: SZ TECHNIQUE: CT of the head without intravenous contrast. Radiation Dose Information: CT Dose: CTDI volume is 178.24 mGy. Dose-length product is 4239.81 mGy*cm The dose indicators for CT are the volume Computed Tomography (CT) Dose Index (CTDIvol) and the Dose Length Product (DLP), and are measured in units of mGy and mGy-cm, respectively. These indicators are not patient dose, but values generated from the CT scanner acquisition factors. The report includes radiation exposure data for exposures received during this examination. COMPARISON: None FINDINGS: There is no evidence of acute intracranial hemorrhage, extra-axial collection, mass effect, midline s hift, herniation or hydrocephalus. The ventricles, sulci and cisterns are age appropriate. The rivera-white differentiation is intact. Patchy periventricular and subcortical white matter hypoattenuation is nonspecific but may be related to small vessel ischemic disease. The visualized paranasal sinuses and mastoid air cells are clear. The surrounding soft tissues and osseous structures are unremarkable. IMPRESSION: 1. Best images possible because of continuous patient motion. 2. No acute intracranial hemorrhage. 3. No CT findings to suggest territorial ischemia. 4. Recommend repeat study when patient is more cooperative.
[2023-12-21 22:08] VITALS: PULSE 110; RESP 18; O2SAT 100
[2023-12-21 22:34] LABS: Urine Bacteria None Seen /hpf (None Seen)
[2023-12-21 22:55] LABS: Amphetamine Screen, Urine Neg (NEGATIVE); Barbiturate Scree,Urine Neg (NEGATIVE); Benzodiazephine Screen, Urine Neg (NEGATIVE); Cannabinoid Screen, Urine Pos (NEGATIVE); Cocaine Screen, Urine Neg (NEGATIVE); Opiate Scree,Urine Neg (NEGATIVE); Phencyclidine Screen, Urine Neg (NEGATIVE)
[2023-12-21 23:24] LABS: Urine Blood 1+ /uL (Negative); Urine Clarity Clear (Clear); Urine Color Light-Yellow (Yellow); Urine Mucus FEW (None Seen); Urine Protein, UAD 1+ (Negative); Urine Specific Gravity 1.017 (1.001-1.035); Urine Urobilinogen Normal (Negative); Urine WBC 9 /hpf (0 - 3)
[2023-12-22] MEDS ORDERED: LORazepam 2MG/ML-1ML VIAL IV PRN (00:15)
[2023-12-22] MEDS ORDERED: ONDANSETRON HCL 4 MG/2 ML VIAL IV PRN (00:15)
--- NOTE | 2023-12-22 00:16 | DVHHP2 ---
Admitting Diagnosis: Recurrent seizures, altered mental status History of Present Illness History Source: Patient Exam Limitations: No limitations HPI Mr. Shan Mae is a 78-year-old male brought in by ambulance from home for a witnessed tonic-clonic seizure by the . Lasted at least 1 minute. Patient has history of seizure disorder on Keppra. Most recently seen by Neurology approximately three months ago. Patient also has a history of bladder cancer. Patient stated compliance with the medications. Patient alert and oriented x 4 reports he missed a dose of his antiseizure medication yesterday evening. Patient denies any headaches, nausea, vomiting, dizziness, blurry vision. Patient was admitted for further evaluation. Home Meds Reported Medications Cranberry Extract (Cranberry Extract) 200 Mg Cap, 100 MG PO DAILY, CAP 10/25/23 Multiple Vitamin (Multi Vitamin) 1 Tab Tab, 1 TAB PO DAILY, TAB 10/25/23 Sherine (Sherine Root) Pow, 1 XX, POW 10/25/23 Lisinopril (Lisinopril) 2.5 Mg Tab, 2.5 MG PO DAILY, TAB 10/25/23 Levetiracetam (Levetiracetam) 750 Mg Tab, 750 MG PO BID, TAB 10/25/23 Lacosamide (Lacosamide) 100 Mg Tab, 100 MG PO BID, TAB 10/27/22 Crataegus Oxyacantha (Slater (Slater Phillips) 550 Mg Cap, 0 PO, CAP 10/27/22 Donepezil Hydrochloride (DONEPEZIL HCL) 5 Mg Tab, 5 MG PO DAILY, TAB 09/22/22 Past Medical History Cardiac: HTN Pulmonary: No pertinent Hx Central Nervous System: CVA, Seizure GI: No pertinent Hx Hemotology/Oncology: No pertinent Hx Hepatobiliary: No pertinent Hx Psychiatric: No pertinent Hx Musculoskeletal: No pertinent Hx Rheumotologic: No pertinent Hx Infectious Disease: No peritnent Hx ENT: No pertinent Hx Renal/: No pertinent Hx Endocrine: No pertinent Hx Dermatology: No pertinent Hx Others bladder cancer Past Surgical History: Pacemaker Others iliac aneurysm clip Patient Family History: Blood clots G8 MOTHER Diabetes mellitus grandmother FH: cancer G8 SISTER FH: suicide G8 FATHER Smoker: No Hx (Negative) Alocohol: None Drugs: Marijuana Lives with: With family Domestic Violence: Neg Review of Systems Constitutional: No symptom reported Ears, Nose, & Throat: No symptom reported Eyes: No symptom reported Pulmonary/Respiratory: No symptom reported Cardiovascular: No symptom reported Gastrointestinal: No symptom reported Genitourinary: No symptom reported Musculoskeletal: No symptom reported Skin: No symptom reported Psychiatric: No symptom reported Endocrine: No symptom reported Hemotologic/Lymphatic: No symptom reported H&P Exam Vital Signs Vital Signs Date Time Temp Pulse Resp B/P (MAP) Pulse Ox O2 Delivery O2 Flow Rate FiO2 12/21/23 22:08 110 18 100 10.0 12/21/23 19:53 Simple Mask* N/A 12/21/23 19:53 98.9 127/63 (84) 98.9 General Appeara: Well developed, Well nourished, Normal Appearance Head Exam: Normal inspection Neck Exam: Normal inspection, Non-tender, Normal alignment Eye Exam: bilateral eye Normal inspection, bilateral eye PERRL, bilateral eye EOMI Ear Exam: bilateral ear Auricle normal, bilateral ear Canal normal Nasal Exam: Normal inspection Mouth: Normal Inspection Pulmonary/Respiratory: Normal inspection, Normal breath sounds, Chest non- tender, Lungs clear Cardiovascular/Chest: Normal inspection, Regular rate, Normal Rhythm Peripheral Pulses: 2+ dorsalis pedis (R), 2+ dorsalis pedis (L), 2+ Radial (R), 2+ Radial (L) Abdominal Exam: Normal bowel sounds, Soft, No tenderness Rectal Exam: Deferred [employer] WORKER Exam: Normal hearing, Normal speech, PERRL Neuro/Mental St: Alert, Oriented Appearance: Appropriate appearance, Appropriate insight Eye contact/ Speech: Cooperative, Good eye contact, Normal speech Thoughts/Psych: Normal thought pattern Skin Exam: Normal inspection, Normal color, Warm/dry Labs/Xrays Labs Test 12/21/23 22:24 12/21/23 22:15 12/21/23 21:55 12/21/23 20:56 Range/Units Urine Color Light-yellow Yellow Urine Clarity Clear Clear Urine pH 5.0 5.0-9.0 Urine Specific [place] 1.017 1.001-1.035 Urine Protein 1+ H Negative Urine Ketones Negative Negative Urine Blood 1+ H Negative /uL Urine Nitrite Negative Negative Urine Bilirubin Negative Negative Urine Urobilinogen Normal Negative mg/dL Urine Leukocyte Esterase Negative Negative /uL Urine RBC 6 0 - 3 /hpf Urine WBC 9 0 - 3 /hpf Urine Squamous Epithelial Cells Few <5 /hpf Urine Bacteria None seen None Seen /hpf Urine Mucus Few None Seen Urine Glucose Normal Normal mg/dL Urine Opiates Screen Neg NEGATIVE Urine Fentanyl Screen Neg NEGATIVE Urine Barbiturates Screen Neg NEGATIVE Urine Phencyclidine Screen Neg NEGATIVE Urine Amphetamines Screen Neg NEGATIVE Urine Benzodiazepines Screen Neg NEGATIVE Urine Cocaine Screen Neg NEGATIVE Urine Cannabinoids Screen Pos NEGATIVE Troponin I High Sensitivity 43 </=54 ng/L Ammonia < 10 L 11-32 umol/L Lactic Acid Level 1.3 0.4-2.0 mmol/L Test 12/21/23 18:47 Range/Units White Blood Count 7.4 4.4-10.8 10^3/uL Red Blood Count 4.50 4.5-5.90 10^6/uL Hemoglobin 14.8 13.5-17.5 g/dL Hematocrit 43.7 41.0-53.0 % Mean Corpuscular Volume 97.2 80.0-100.0 fL Mean Corpuscular Hemoglobin 32.9 H 28.0-32.0 pg Mean Corpuscular Hemoglobin Concent 33.8 32.0-36.0 g/dL Red Cell Distribution Width 15.8 H 11.8-14.3 % Platelet Count 125 L 140-450 10^3/uL Mean Platelet Volume 8.8 6.9-10.8 fL Neutrophils (%) (Auto) 85.8 H 37.0-80.0 % Lymphocytes (%) (Auto) 7.9 L 10.0-50.0 % Monocytes (%) (Auto) 5.0 0.0-12.0 % Eosinophils (%) (Auto) 0.7 0.0-7.0 % Basophils (%) (Auto) 0.6 0.0-2.0 % Neutrophils # (Auto) 6.3 1.6-8.6 10 ^3/uL Lymphocytes # (Auto) 0.6 0.4-5.4 10 ^3/uL Monocytes # (Auto) 0.4 0-1.3 10 ^3/uL Eosinophils # (Auto) 0.1 0-0.8 10 ^3/uL Basophils # (Auto) 0 0-0.2 10 ^3/uL Nucleated Red Blood Cells 0.0 % Sodium Level 144 136-145 mmol/L Potassium Level 4.0 3.5-5.1 mmol/L Chloride Level 112 H 98-107 mmol/L Carbon Dioxide Level 25 20-31 mmol/L Anion Gap 7 5-15 Blood Urea Nitrogen 26 H 9-23 mg/dL Creatinine 0.90 0.700-1.30 mg/dL Glomerular Filtration Rate Calc 87 >90 mL/min BUN/Creatinine Ratio 28.9 H 10.0-20.0 Serum Glucose 163 H 74-106 mg/dL Calcium Level 9.4 8.7-10.4 mg/dL Magnesium Level 1.8 1.6-2.6 mg/dL Total Bilirubin 0.4 0.2-1.0 mg/dL Aspartate Amino Transferase (AST) 21 13-40 U/L Alanine Aminotransferase (ALT) 21 7-40 U/L Alkaline Phosphatase 99 46-116 U/L Creatine Kinase 69 46-171 U/L B-Type Natriuretic Peptide 405.22 0-100 pg/mL Total Protein 7.0 5.7-8.2 g/dL Albumin 4.1 3.2-4.8 g/dL Assessment/Plan Problem List: (1) Seizure (2) Altered mental status (3) Pneumonia Plan 78 yo male with known history of seizures, hypertension, CVA, pacemaker placement, bladder cancer, iliac aneurysm clip presents with recurrent seizures witnessed at home. 1. Seizures 2. altered mental status 3. Pneumonia 4. Positive Cannabinoids Admit Telemetry unit Neurology consultation, seizure precautions Keppra IV IV fluids NS IV antibiotic Levaquin Aspiration precautions Discussed all above with patient who verbalizes understanding of care plan. All questions were answered. Discussed assessment and care plan with supervising MD Dr. Watson. Plan discussed with: Patient, Other Code Visit Code Visit Total Time (mins): 45 Additional Comments Additional Comments Additional Comments Patient is seen and evaluated and discussed with the and patient at bedside. Patient seen and evaluated by nurse practitioner. Chart is reviewed. I agree with the nurse practitioner's evaluation, documentation, assessment and care plan as outlined. AKILA JOINER Dec 22, 2023 00:16 DEIDRE KAUFMAN MD Dec 22, 2023 14:52
--- NOTE | 2023-12-22 01:28 | DVH ---
Exam: CT CT AB PEL WO CON-NO ORAL OR IV History: Seizure Comparison Study: 05/23/23 Technique: Multidetector spiral CT of the abdomen was performed from lung bases to pubic symphysis. Imaging was performed without IV contrast. Axial, coronal and sagittal multiplanar reformats were ob tained from the axial data set by the technologist. Radiation Dose : 1. Abdomen/Pelvis: CTDIvol 9 mGy, DLP 511 mGy*cm. Findings: Evaluation of solid organs is limited due to lack of intravenous contrast use. Lung Bases: No acute or significant lung base finding. Normal heart size. No pleural or pericardial effusion. Subcentimeter calcified nodule in the right lower lobe. Liver: The liver is normal in size. Subcentimeter hypodensity in the right hepatic lobe. Gallbladder and Biliary Tree: Unremarkable Spleen: Unremarkable Pancreas: The pancreas is grossly normal in appearance. Adrenal Glands: Unremarkable Kidneys: Kidneys are grossly normal without calculi or hydronephrosis. Bladder: Grossly unremarkable for degree of distention. Bowel: The stomach is grossly normal in appearance. Small bowel and colon are normal in caliber and d istribution. The appendix is not visualized; however, no secondary findings of acute appendicitis id entified. Ascites: Absent Lymphadenopathy: No mesenteric, retroperitoneal or periportal lymphadenopathy. Abdominal Wall and Mesentery: Unremarkable. Vasculature: Infrarenal abdominal aortic stent with extension into the bilateral common iliac arterie s. 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 Pelvic Organs: Unremarkable Musculoskeletal: No aggressive focal bony lesions, acute fractures or dislocation. IMPRESSION: No acute abdominal or pelvic findings or significant interval change. 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 END IMPRESSION:
[2023-12-22] MEDS: levoFLOXacin 500MG 100 ML IV SCH (04:14)
[2023-12-22 04:55] LABS: Basophils # (auto) 0 10 ^3/uL (0-0.2); Basophils % (auto) 0.3 % (0.0-2.0); Chloride 111 mmol/L (98-107); Eosinophils # (auto) 0 10 ^3/uL (0-0.8); Eosinophils % (auto) 0.2 % (0.0-7.0); Hematocrit 38.1 % (41.0-53.0); Hemoglobin 12.8 g/dL (13.5-17.5); Lymphocytes # (auto) 0.8 10 ^3/uL (0.4-5.4); Mean Corpuscular Hemoglobin 32.4 pg (28.0-32.0); Mean Corpuscular Hgb Conc. 33.6 g/dL (32.0-36.0); Mean Corpuscular Volume 96.6 fL (80.0-100.0); Monocytes # (auto) 0.6 10 ^3/uL (0-1.3); Monocytes % (auto) 7.2 % (0.0-12.0); Neutrophils # (auto) 7.5 10 ^3/uL (1.6-8.6); Neutrophils % (auto) 83.3 % (37.0-80.0); Platelet Count (auto) 115 10^3/uL (140-450); Potassium 4.1 mmol/L (3.5-5.1); Red Blood Cells 3.94 10^6/uL (4.5-5.90); Red Cell Distribution Width 15.7 % (11.8-14.3); Sodium 142 mmol/L (136-145)
[2023-12-22 04:56] LABS: Anion Gap 7 (5-15); Calcium 9.1 mg/dL (8.7-10.4); Carbon Dioxide 24 mmol/L (20-31)
[2023-12-22 05:01] LABS: Blood Urea Nitrogen 20 mg/dL (9-23); Glucose 126 mg/dL (74-106)
[2023-12-22] MEDS: levETIRAcetam 500 mg/100ml 100 ML IV SCH (07:10)
[2023-12-22 07:30] VITALS: PULSE 76; RESP 18; O2SAT 94
[2023-12-22] MEDS: ACETAMINOPHEN 325 MG TAB PO PRN (09:38)
[2023-12-22 09:54] VITALS: PULSE 75; RESP 18; O2SAT 96
[2023-12-22] MEDS: IPRATROPIUM BROM 0.5 MG/2.5ML INH SOL NEB PRN (09:56)
[2023-12-22 09:59] VITALS: PULSE 74; RESP 16; O2SAT 100
[2023-12-22] MEDS: ENOXAPARIN SOD 40 MG/0.4 ML SYRINGE SC SCH (10:39)
--- NOTE | 2023-12-22 14:29 | DVH ---
Renal ultrasound HISTORY: right kidney cyst vs mass TECHNIQUE: 2 D ultrasound was performed with transaxial and longitudinal images. FINDINGS: Right kidney measures 10 cm and left kidney measures 13 cm. Cysts in the right kidney measu ring up to 2 cm in size. Small stones in the left kidney measuring 3 mm No hydronephrosis Urinary bladder is incompletely distended irregularly marginated. There is a non mobile 1 cm lesion a long the inner bladder wall IMPRESSION: 1. Right renal cysts. 2. Nonobstructive left renal calculi 3. 1 cm sessile mass left inner bladder wall. Recommend endoscopic correlation
--- NOTE | 2023-12-22 14:52 | DVHDS2 ---
Discharge Summary Date of Admission Dec 22, 2023 at 00:03 Date of Discharge: Dec 22, 2023 Labs/Diagnostic Data: Laboratory Results Test 12/22/23 04:40 12/21/23 22:24 12/21/23 22:15 12/21/23 21:55 White Blood Count 9.0 10^3/uL (4.4-10.8) Red Blood Count 3.94 10^6/uL (4.5-5.90) Hemoglobin 12.8 g/dL (13.5-17.5) Hematocrit 38.1 % (41.0-53.0) Mean Corpuscular Volume 96.6 fL (80.0-100.0) Mean Corpuscular Hemoglobin 32.4 pg (28.0-32.0) Mean Corpuscular Hemoglobin Concent 33.6 g/dL (32.0-36.0) Red Cell Distribution Width 15.7 % (11.8-14.3) Platelet Count 115 10^3/uL (140-450) Mean Platelet Volume 8.4 fL (6.9-10.8) Neutrophils (%) (Auto) 83.3 % (37.0-80.0) Lymphocytes (%) (Auto) 9.0 % (10.0-50.0) Monocytes (%) (Auto) 7.2 % (0.0-12.0) Eosinophils (%) (Auto) 0.2 % (0.0-7.0) Basophils (%) (Auto) 0.3 % (0.0-2.0) Neutrophils # (Auto) 7.5 10 ^3/uL (1.6-8.6) Lymphocytes # (Auto) 0.8 10 ^3/uL (0.4-5.4) Monocytes # (Auto) 0.6 10 ^3/uL (0-1.3) Eosinophils # (Auto) 0 10 ^3/uL (0-0.8) Basophils # (Auto) 0 10 ^3/uL (0-0.2) Nucleated Red Blood Cells 0.0 % Sodium Level 142 mmol/L (136-145) Potassium Level 4.1 mmol/L (3.5-5.1) Chloride Level 111 mmol/L (98-107) Carbon Dioxide Level 24 mmol/L (20-31) Anion Gap 7 (5-15) Blood Urea Nitrogen 20 mg/dL (9-23) Creatinine 0.77 mg/dL (0.700-1.30) Glomerular Filtration Rate Calc 92 mL/min (>90) BUN/Creatinine Ratio 26.0 (10.0-20.0) Serum Glucose 126 mg/dL (74-106) Lactic Acid Level 0.8 mmol/L (0.4-2.0) Calcium Level 9.1 mg/dL (8.7-10.4) Urine Color Light-yellow (Yellow) Urine Clarity Clear (Clear) Urine pH 5.0 (5.0-9.0) Urine Specific [place] 1.017 (1.001-1.035) Urine Protein 1+ (Negative) Urine Ketones Negative (Negative) Urine Blood 1+ /uL (Negative) Urine Nitrite Negative (Negative) Urine Bilirubin Negative (Negative) Urine Urobilinogen Normal mg/dL (Negative) Urine Leukocyte Esterase Negative /uL (Negative) Urine RBC 6 /hpf (0 - 3) Urine WBC 9 /hpf (0 - 3) Urine Squamous Epithelial Cells Few /hpf (<5) Urine Bacteria None seen /hpf (None Seen) Urine Mucus Few (None Seen) Urine Glucose Normal mg/dL (Normal) Urine Opiates Screen Neg (NEGATIVE) Urine Fentanyl Screen Neg (NEGATIVE) Urine Barbiturates Screen Neg (NEGATIVE) Urine Phencyclidine Screen Neg (NEGATIVE) Urine Amphetamines Screen Neg (NEGATIVE) Urine Benzodiazepines Screen Neg (NEGATIVE) Urine Cocaine Screen Neg (NEGATIVE) Urine Cannabinoids Screen Pos (NEGATIVE) Troponin I High Sensitivity 43 ng/L (</=54) Ammonia < 10 umol/L (11-32) Test 12/21/23 18:47 Magnesium Level 1.8 mg/dL (1.6-2.6) Total Bilirubin 0.4 mg/dL (0.2-1.0) Aspartate Amino Transferase (AST) 21 U/L (13-40) Alanine Aminotransferase (ALT) 21 U/L (7-40) Alkaline Phosphatase 99 U/L (46-116) Creatine Kinase 69 U/L (46-171) B-Type Natriuretic Peptide 405.22 pg/mL (0-100) Total Protein 7.0 g/dL (5.7-8.2) Albumin 4.1 g/dL (3.2-4.8) Other Laboratory Tests 12/22/23 04:40 Final Diagnosis/Problems List Breakthrough seizure, history of bladder cancer Discharge Disposition: Home Discharge Instruct/Medications Diet: Consistent carbohydrate, Cardiac 2g Na,low cholest Activity: No Restrictions, As Tolerated Follow Up/Referral: Dr. Randy Lorenzo urologist for further follow up of bladder cancer and renal ultrasound results Follow up with neurologist Dr. Hernanedz two weeks Medications: Increase your Keppra two 1000 mg twice a day. Avoid marijuana use. Continue other home medications as you were taking. Discharge Statement: "Patient was advised to return to the ER or call 911 if any headaches, dizziness, shortness of breath, chest pain, abdominal pain, bleeding, fevers, or worsening of medical condition. Patient was counseled about treatment plan, medications, possible side effects, patientverbalized understanding. All questions were answered to the best of my ability. This discharge took greater then 30 minutes in planning, reviewing documentation, counseling the patient, and discussing with other team members." ASSESSMENT ASSESSMENT Assessment Breakthrough seizure, history of bladder cancer DEIDRE KAUFMAN MD Dec 22, 2023 14:52
[2023-12-22] MEDS: HYDROcodone-ACET 5/325MG TAB PO PRN (15:38)
[2023-12-22 20:19] VITALS: BP 148/79; PULSE 81; RESP 20; TEMP 97.4; O2SAT 94
== END 2023-12-22 14:51 | disposition home health service (06) | DRG 101 ==
LOC: EDBD 17:48 → ER 17:48 → TELE 12-22 00:03
PROVIDERS: ADMIT Nurse Practitioner Family; ATTEND Nurse Practitioner Family
DX: G40.909 Epilepsy, unspecified, not intractable, without status epilepticus (principal); I10 Essential (primary) hypertension; F17.200 Nicotine dependence, unspecified, uncomplicated; Z85.51 Personal history of malignant neoplasm of bladder; Z86.73 Personal history of transient ischemic attack (TIA), and cerebral infarction without residual deficits; Z95.0 Presence of cardiac pacemaker; Z83.3 Family history of diabetes mellitus
CPT/HCPCS: 36415; 70450; 71045; 76775; 80048; 80053; 80307; 81001; 82140; 82550; 83605; 83735; 83880; 84484; 85025; 87040; 87077; 87086; 87186; 93005; 94640; 96365; 96375; 99291; G0378; J1956

== ENCOUNTER 2024-06-18 13:04 | Inpatient (IN) | payer MEDICARE, OTHER ==
[~2024-06-18] VITALS: Ht 172.7 cm; Wt 69.6 kg
--- NOTE | 2024-06-18 13:37 | ED.PDOC ---
History of Present Illness HPI Comments 79-year-old male presents with a chief complaint of gross hematuria. Patient came in due to blood in Gabriel catheter x onset today. Patient reports recent surgery on Tuesday due to bladder cancer and Gabriel was placed. Patient also reports bleeding around insertion site. Chief Complaint: Urinary Time Seen by MD: 13:23 Primary Care Provider: UNKNOWN Reviewed Notes: Medications, Allergies Allergies: Coded Allergies: Penicillins (Unverified Allergy, Severe, angioedema, SOB, 09/22/22) Iodinated Diagnostic Agents (Unverified Adverse Reaction, Severe, seizure, 09/22/22) Memantine (Verified Adverse Reaction, Severe, Seizure trigger, 10/27/22) Home Meds Reported Medications Cranberry Extract (Cranberry Extract) 200 Mg Cap, 100 MG PO DAILY, CAP 10/25/23 Multiple Vitamin (Multi Vitamin) 1 Tab Tab, 1 TAB PO DAILY, TAB 10/25/23 Sherine (Sherine Root) Pow, 1 XX, POW 10/25/23 Lisinopril (Lisinopril) 2.5 Mg Tab, 2.5 MG PO DAILY, TAB 10/25/23 Levetiracetam (Levetiracetam) 750 Mg Tab, 750 MG PO BID, TAB 10/25/23 Lacosamide (Lacosamide) 100 Mg Tab, 100 MG PO BID, TAB 10/27/22 Crataegus Oxyacantha (Dyer (Dyer Phillips) 550 Mg Cap, 0 PO, CAP 10/27/22 Donepezil Hydrochloride (DONEPEZIL HCL) 5 Mg Tab, 5 MG PO DAILY, TAB 09/22/22 Information Source: Patient Mode of Arrival: Ambulatory Severity: Moderate Timing: Days Duration: Since onset Prehospital treatment: None Past Medical History PAST MEDICAL HISTORY: Cancer, Seizures Surgical History: Denies all surgeries Family History Family History: Reviewed,noncontributory to illness Social History Smoker: Non-Smoker Alcohol: Denies ETOH Use Drugs: Denies Drug Use Lives In: Home Constitutional: denies: chills, diaphoresis, fatigue, fever, malaise, sweats, weakness, others EENTM: denies: blurred vision, double vision, ear bleeding, ear discharge, ear drainage, ear pain, ear ringing, eye pain, eye redness, hearing loss, mouth pain, mouth swelling, nasal discharge, nose bleeding, nose congestion, nose pain, photophobia, tearing, throat pain, throat swelling, voice changes, others Respiratory: denies: cough, hemoptysis, orthopnea, SOB at rest, shortness of breath, SOB with excertion, stridor, wheezing, others Cardiovascular: denies: chest pain, dizzy spells, diaphoresis, Dyspnea on exertion, edema, irregular heart beat, left arm pain, lightheadedness, palpitations, PND, syncope, others Gastrointestinal: denies: abdomen distended, abdominal pain, blood streaked bowels, constipated, diarrhea, dysphagia, difficulty swallowing, hematemesis, melena, nausea, poor appetite, poor fluid intake, rectal bleeding, rectal pain, vomiting, others Genitourinary: reports: hematuria; denies: burning, dysuria, flank pain, frequency, incontinence, penile discharge, penile sore, pain, testicle pain, t esticle swelling, urgency, others Neurological: denies: dizziness, fainting, headache, left sided numbness, left sided weakness, numbness, paresthesia, pre-existing deficit, right sided numbness, right sided weakness, seizure, speech problems, tingling, tremors, weakness, others Musculoskeletal: denies: back pain, gout, joint pain, joint swelling, muscle pain, muscle stiffness, neck pain, others Integumetry: denies: bruises, change in color, change in hair/nails, dryness, laceration, lesions, lumps, rash, wounds, others Allergic/Immunocompromised: denies: Difficulty Healing, Frequent Infections, Hives, Itching, others Hematologic/Lymphatic: denies: anemia, blood clots, easy bleeding, easy bruising, swollen glands, others Endocrine: denies: excessive hunger, excessive sweating, excessive thirst, excessive urination, flushing, intolerance to cold, intolerance to heat, unexplained weight gain, unexplained weight loss, others Psychiatric: denies: anxiety, bipolar disorder, depression, hopeless, panic disorder, schizophrenia, sleepless, suicidal, others All Other Systems: Reviewed and Negative Physical Exam General Appearance: No Apparent Distress, Normal HEENT: Normal ENT Inspection, Pharynx Normal, TMs Normal Neck: Full Range of Motion, Non-Tender, Normal, Normal Inspection Respiratory: Chest Non-Tender, Lungs Clear, No Accessory Muscle Use, No Respiratory Distress, Normal Breath Sounds Cardiovascular: No Edema, No JVD, No Murmur, No Gallop, Normal Peripheral Pulses, Regular Rate/Rhythm Breast Exam: Deferred Gastrointestinal: No Organomegaly, Non Tender, No Pulsatile Mass, Normal Bowel Sounds, Soft Genitalia: Other (GABRIEL CATHETER IN PLACE WITH GROSS HEMATURIA IN TUBING) Pelvic: Deferred Rectal: Deferred Extremities: No calf tenderness, Normal capillary refill, Normal inspection, Normal range of motion, Non-tender, No pedal edema Musculoskeletal : Apperance: Normal Neurologic: Alert, records analyst II-XII nml as Tested, No Motor Deficits, Normal Affect, Normal Mood, No Sensory Deficits Cerebellar Function: Normal Reflexes: Normal Skin: Dry, Normal Color, Warm Lymphatic: No Adenopathy Was a procedure done? Was a procedure done?: No Differential Dx Considerations may include: post operative bleed, hematuria, coagulopathy, gabriel occlusion, anemia X-Ray, Labs, Meds, VS Vital Signs Date Time Temp Pulse Resp B/P (MAP) Pulse Ox O2 Delivery O2 Flow Rate FiO2 06/18/24 13:10 99.2 71 20 131/81 (98) 95 99.2 Lab Test 06/18/24 15:19 06/18/24 13:40 Range/Units White Blood Count Pending 5.2 4.4-10.8 10^3/uL Red Blood Count Pending 4.29 L 4.5-5.90 10^6/uL Hemoglobin Pending 14.1 13.5-17.5 g/dL Hematocrit Pending 41.7 41.0-53.0 % Mean Corpuscular Volume Pending 97.3 80.0-100.0 fL Mean Corpuscular Hemoglobin Pending 32.9 H 28.0-32.0 pg Mean Corpuscular Hemoglobin Concent Pending 33.8 32.0-36.0 g/dL Red Cell Distribution Width Pending 13.5 11.8-14.3 % Platelet Count Pending 137 L 140-450 10^3/uL Mean Platelet Volume Pending 8.7 6.9-10.8 fL Neutrophils (%) (Auto) Pending 75.6 37.0-80.0 % Lymphocytes (%) (Auto) Pending 17.9 10.0-50.0 % Monocytes (%) (Auto) Pending 1.5 0.0-12.0 % Basophils (%) (Auto) Pending 0.8 0.0-2.0 % Neutrophils # (Auto) Pending 3.9 1.6-8.6 10 ^3/uL Lymphocytes # (Auto) Pending 0.9 0.4-5.4 10 ^3/uL Monocytes # (Auto) Pending 0.1 0-1.3 10 ^3/uL Sodium Level Pending Potassium Level Pending Chloride Level Pending Carbon Dioxide Level Pending Anion Gap Pending Blood Urea Nitrogen Pending Creatinine Pending Glomerular Filtration Rate Calc Pending BUN/Creatinine Ratio Pending Serum Glucose Pending Calcium Level Pending Eosinophils (%) (Auto) 4.2 0.0-7.0 % Eosinophils # (Auto) 0.2 0-0.8 10 ^3/uL Basophils # (Auto) 0 0-0.2 10 ^3/uL Nucleated Red Blood Cells 0.1 % Current Medications Medications (Trade) Dose Ordered Sig/Yadira Route Start Time Stop Time Status Last Admin Lidocaine HCl (Glydo) 11 ml ONCE ONCE UR 06/18/24 14:30 06/18/24 14:35 DC 06/18/24 14:37 Time of 1ST Reevaluation: 13:53 Reevaluation 1ST: Unchanged Patient Education/Counseling: Diagnosis, Treatment, Prognosis, Need For Follow Up Family Education/Counseling: No Family Present Comments i consulted urology, [employer] Lupe will irrigate the bladder and recommends admiss ion and have Dr Crocker see him in AM Additional Information Previous visits: DECEMBER 12, 2023 for SEIZURE The following tests were ordered, and results were reviewed by me: I reviewed and agreed with the following test results read by other providers: I discussed treatment and results with medical personnel and: PATIENT Comprehensive systems review obtained and negative except for what is stated in the HPI. Departure 1 Departure Time of Disposition: 15:02 Impression: Primary Impression: Hematuria Qualified Codes: R31.9 - Hematuria, unspecified Disposition: 09 ADMITTED INPATIENT Admit to: Med Surg Condition: Serious Discharged With: Self Critical Care Note Critical Care Time?: No Stability Stability form required: No Heart Score Heart Score: Heart Score Response (Comments) Value History N/A 0 EKG N/A 0 Age N/A 0 Risk Factors N/A 0 Troponin N/A 0 Total 0 I personally scribed for BUDDY BONILLA MD ([email or web address]) on 06/18/24 at 13:37. Electronically submitted by Kan Javed ([email or web address]). BUDDY BONILLA MD Jun 18, 2024 13:37
[2024-06-18 14:06] LABS: Basophils # (auto) 0 10 ^3/uL (0-0.2); Basophils % (auto) 0.8 % (0.0-2.0); Eosinophils # (auto) 0.2 10 ^3/uL (0-0.8); Eosinophils % (auto) 4.2 % (0.0-7.0); Hematocrit 41.7 % (41.0-53.0); Hemoglobin 14.1 g/dL (13.5-17.5); Lymphocytes # (auto) 0.9 10 ^3/uL (0.4-5.4); Lymphocytes % (auto) 17.9 % (10.0-50.0); Mean Corpuscular Hemoglobin 32.9 pg (28.0-32.0); Mean Corpuscular Hgb Conc. 33.8 g/dL (32.0-36.0); Mean Corpuscular Volume 97.3 fL (80.0-100.0); Monocytes # (auto) 0.1 10 ^3/uL (0-1.3); Monocytes % (auto) 1.5 % (0.0-12.0); Neutrophils # (auto) 3.9 10 ^3/uL (1.6-8.6); Neutrophils % (auto) 75.6 % (37.0-80.0); Nucleated Red Blood Cells % 0.1 %; Platelet Count (auto) 137 10^3/uL (140-450); Red Blood Cells 4.29 10^6/uL (4.5-5.90); Red Cell Distribution Width 13.5 % (11.8-14.3); White Blood Cell 5.2 10^3/uL (4.4-10.8)
[2024-06-18 14:35] VITALS: PULSE 77; RESP 13; O2SAT 95
[2024-06-18] MEDS: LIDOCAINE 2% JELLY 11ml (GLYDO) UR ONE (14:37)
[2024-06-18 15:35] LABS: Basophils # (auto) 0 10 ^3/uL (0-0.2); Basophils % (auto) 0.6 % (0.0-2.0); Eosinophils # (auto) 0.2 10 ^3/uL (0-0.8); Eosinophils % (auto) 3.7 % (0.0-7.0); Hematocrit 41.9 % (41.0-53.0); Hemoglobin 14.2 g/dL (13.5-17.5); Lymphocytes # (auto) 0.9 10 ^3/uL (0.4-5.4); Lymphocytes % (auto) 15.2 % (10.0-50.0); Mean Corpuscular Hgb Conc. 33.9 g/dL (32.0-36.0); Mean Corpuscular Volume 97.5 fL (80.0-100.0); Monocytes # (auto) 0.1 10 ^3/uL (0-1.3); Monocytes % (auto) 1.5 % (0.0-12.0); Neutrophils # (auto) 4.4 10 ^3/uL (1.6-8.6); Nucleated Red Blood Cells % 0.1 %; Platelet Count (auto) 118 10^3/uL (140-450); Red Blood Cells 4.29 10^6/uL (4.5-5.90); Red Cell Distribution Width 13.1 % (11.8-14.3); White Blood Cell 5.6 10^3/uL (4.4-10.8)
[2024-06-18 15:37] LABS: Chloride 104 mmol/L (98-107); Potassium 4.7 mmol/L (3.5-5.1)
[2024-06-18 15:38] LABS: Anion Gap 6 (5-15); Calcium 9.9 mg/dL (8.7-10.4); Carbon Dioxide 25 mmol/L (20-31); Sodium 135 mmol/L (136-145)
[2024-06-18 15:43] LABS: BUN/Creatinine Ratio 21.1 (10.0-20.0); Blood Urea Nitrogen 23 mg/dL (9-23); Glucose 116 mg/dL (74-106)
--- NOTE | 2024-06-18 15:44 | DVHINCON2 ---
Date of service: Jun 18, 2024 Referring Physician Hospitalist Reason for Consultation gross hematuria History of Present Illness History Source: Patient, Family, RN Notes, MD Notes, Old Records Exam Limitations: No limitations HPI 79 yo male known to urology service for bladder cancer presents with complaint of gross hematuria in carlson. Pt had TURBT at [facility] on Tuesday and was d/c home with carlson scheduled to be removed in 1 week. He was doing fine over the weekend but this morning he noticed kimberley blood draining to the bag as well as leaking around the catheter. Denies blood thinners. I replaced his carlson with 3 way 20 F hematuria catheter for CBI. 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, no muscle invasion Home Meds Reported Medications Cranberry Extract (Cranberry Extract) 200 Mg Cap, 100 MG PO DAILY, CAP 10/25/23 Multiple Vitamin (Multi Vitamin) 1 Tab Tab, 1 TAB PO DAILY, TAB 10/25/23 Sherine (Sherine Root) Pow, 1 XX, POW 10/25/23 Lisinopril (Lisinopril) 2.5 Mg Tab, 2.5 MG PO DAILY, TAB 10/25/23 Levetiracetam (Levetiracetam) 750 Mg Tab, 750 MG PO BID, TAB 10/25/23 Lacosamide (Lacosamide) 100 Mg Tab, 100 MG PO BID, TAB 10/27/22 Crataegus Oxyacantha (Kearsarge (Kearsarge Phillips) 550 Mg Cap, 0 PO, CAP 10/27/22 Donepezil Hydrochloride (DONEPEZIL HCL) 5 Mg Tab, 5 MG PO DAILY, TAB 09/22/22 Past Medical History Hemotology/Oncology: Cancer Renal/: UTI, Hematuria, Other (bladder cancer) Past Surgical History: Cystoscopy, Pacemaker, Total knee replacement Patient Family History: Blood clots G8 MOTHER Diabetes mellitus grandmother FH: cancer G8 SISTER FH: suicide G8 FATHER Review of Systems Genitourinary: Hematuria, Retention H&P Exam Vital Signs Vital Signs Date Time Temp Pulse Resp B/P (MAP) Pulse Ox O2 Delivery O2 Flow Rate FiO2 06/18/24 13:10 99.2 71 20 131/81 (98) 95 99.2 General Appeara: Well developed, Well nourished, Normal Appearance Pulmonary/Respiratory: Normal inspection, Normal breath sounds, Chest non- tender, Lungs clear Cardiovascular/Chest: Normal inspection, Regular rate, Normal Rhythm Neuro/Mental St: Alert, Oriented Eye contact/ Speech: Cooperative, Good eye contact, Normal speech Skin Exam: Normal inspection, Normal color, Warm/dry Labs/Xrays Labs Test 06/18/24 15:19 06/18/24 13:40 Range/Units Eosinophils (%) (Auto) 4.2 0.0-7.0 % Eosinophils # (Auto) 0.2 0-0.8 10 ^3/uL Basophils # (Auto) 0 0-0.2 10 ^3/uL Nucleated Red Blood Cells 0.1 % Assessment/Plan Problem List: (1) History of bladder cancer (2) Hematuria Plan [address] carlson CBI Plan discussed with: Patient, Daughter, Other PHILIPPE HYATT NP Jun 18, 2024 15:44
[2024-06-18] MEDS: TOLTERODINE TARTRATE 1 MG TAB PO ONE (16:05)
--- NOTE | 2024-06-18 16:46 | DVH ---
INDICATION: hematuria TECHNIQUE: Multiple real-time sonographic images of the kidneys and bladder were obtained. COMPARISON: US KIDNEY on DOS: 12/22/23 FINDINGS: Right kidney measures 9.6 cm left kidney measures 13.0 cm Right renal cysts measuring 2.1 cm. Left renal cyst measuring 0.7 cm There is a stone in the lower pole of the left kidney. Nonobstructive left lower pole renal stone not ed IMPRESSION: 1. Right renal cystsNonobstructive Left renal calculus measuring 0.6 cm Renal discrepancy in size with the left kidney larger than that of the right. Renal artery stenosis w ould be in the differential diagnosis to account for this discrepancy and clinical correlation is rec ommended I
[2024-06-18] MEDS ORDERED: NITROGLYCERIN 0.4 MG SL TAB SL PRN (17:00)
[2024-06-18] MEDS ORDERED: HYDROcodone-ACET 5/325MG TAB PO PRN (17:00)
[2024-06-18] MEDS ORDERED: MORPHINE SULFATE INJ 2 MG/ml SYRG IV PRN (17:00)
[2024-06-18] MEDS ORDERED: ACETAMINOPHEN 325 MG TAB PO PRN (17:00)
--- NOTE | 2024-06-18 17:03 | DVHHP2 ---
History of Present Illness Reason for Visit: Gross hematuria through the Sanon catheter. History of Present Illness 79-year-old male with known history of Alzheimer dementia, seizure disorder, hypertension, recurrent urinary bladder cancer status post TURP D multiple times, recently had cystoscopy with TURBT of recurrent urinary better at [facility] on Tuesday presented to the hospital with gross blood in the folic acid. Eventually patient was recommended to be admitted and seen by Urology. Patient will be getting three way Sanon catheter for continu ous bladder irrigation. Patient denies any fevers chills does complaining of dysuria but denies any dysuria. Cardiovascular: HTN DOMESTIC HELPER: Seizure Heme/Onc: Cancer Past Surgical History: Other (Cystoscopy with multiple urinary bladder surgery for bladder cancer.) Family History: None Smoke: No ALCOHOL: none Review of Systems Review of Systems 12 Review of systems are negative besides mentioned above. 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 Labs/Xrays Labs Test 06/18/24 15:19 Range/Units White Blood Count 5.6 4.4-10.8 10^3/uL Red Blood Count 4.29 L 4.5-5.90 10^6/uL Hemoglobin 14.2 13.5-17.5 g/dL Hematocrit 41.9 41.0-53.0 % Mean Corpuscular Volume 97.5 80.0-100.0 fL Mean Corpuscular Hemoglobin 33.0 H 28.0-32.0 pg Mean Corpuscular Hemoglobin Concent 33.9 32.0-36.0 g/dL Red Cell Distribution Width 13.1 11.8-14.3 % Platelet Count 118 L 140-450 10^3/uL Mean Platelet Volume 8.1 6.9-10.8 fL Neutrophils (%) (Auto) 79.0 37.0-80.0 % Lymphocytes (%) (Auto) 15.2 10.0-50.0 % Monocytes (%) (Auto) 1.5 0.0-12.0 % Eosinophils (%) (Auto) 3.7 0.0-7.0 % Basophils (%) (Auto) 0.6 0.0-2.0 % Neutrophils # (Auto) 4.4 1.6-8.6 10 ^3/uL Lymphocytes # (Auto) 0.9 0.4-5.4 10 ^3/uL Monocytes # (Auto) 0.1 0-1.3 10 ^3/uL Eosinophils # (Auto) 0.2 0-0.8 10 ^3/uL Basophils # (Auto) 0 0-0.2 10 ^3/uL Nucleated Red Blood Cells 0.1 % Sodium Level 135 L 136-145 mmol/L Potassium Level 4.7 3.5-5.1 mmol/L Chloride Level 104 98-107 mmol/L Carbon Dioxide Level 25 20-31 mmol/L Anion Gap 6 5-15 Blood Urea Nitrogen 23 9-23 mg/dL Creatinine 1.09 0.700-1.30 mg/dL Glomerular Filtration Rate Calc 69 >90 mL/min BUN/Creatinine Ratio 21.1 H 10.0-20.0 Serum Glucose 116 H 74-106 mg/dL Calcium Level 9.9 8.7-10.4 mg/dL Assessment/Plan Assessment/Plan 79-year-old male with a known history of recurrent urinary bladder cancer status post multiple cystoscopies with the TURBT presented to the hospital with gross hematuria found to have 1. Gross hematuria 2. Status post multiple urinary bladder cancer surgeries, status post TURBT on Tuesday at [facility] 3. Seizure disorder 4. Hypertension next 6. Alzheimer dementia -admit to telemetry, continuous bladder irrigation, Neurology consultation Plan discussed with: Patient Date of Service: Jun 18, 2024 Billing Provider: CELESTINA FITZGERALD MD Common Visit Codes: NOT BILLABLE CELESTINA FITZGERALD MD Jun 18, 2024 17:03
[2024-06-18] MEDS: SODIUM CHLORIDE 0.9% 1,000 ML IV SCH (19:18)
[2024-06-18 19:30] VITALS: PULSE 82; RESP 18; O2SAT 92
[2024-06-18] MEDS: MORPHINE SULFATE INJ 2 MG/ml SYRG IV PRN (20:21)
[2024-06-18 21:30] VITALS: PULSE 75
[2024-06-18 22:12] VITALS: BP 147/80; PULSE 80; RESP 18; TEMP 97.8; O2SAT 92
[2024-06-18] MEDS ORDERED: LACO10SO3 PO (22:14)
[2024-06-18 22:15] VITALS: PULSE 88; RESP 18; O2SAT 98
[2024-06-18] MEDS: levETIRAcetam 500 MG TAB PO SCH (22:27)
[2024-06-18] MEDS: LACOSAMIDE 50 MG TAB PO SCH (22:28)
[2024-06-19] VITALS (9 sets, daily range): BP systolic 122–136; BP diastolic 75–83; PULSE 64–95; RESP 16–18; TEMP 97.3–98.4; O2SAT 92–97
[2024-06-19] MEDS: ONDANSETRON HCL 4 MG/2 ML VIAL IV PRN (00:52)
[2024-06-19] MEDS: DONEPEZIL HYDROCHLORIDE 5 MG TAB PO SCH (09:41)
[2024-06-19] MEDS: LISINOPRIL 5 MG TAB PO SCH (09:44)
--- NOTE | 2024-06-19 14:49 | DVHPN2 ---
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 Medications Current Medications Medications Dose Ordered Sig/Yadira Route Start Time Stop Time Status Last Admin Dose Admin Sodium Chloride 1,000 ml @ 120 mls/hr Q8H20M IV 06/18/24 17:00 06/19/24 09:40 120 MLS/HR Acetaminophen/ Hydrocodone Bitart 1 tab Q4HP PRN PO 06/18/24 17:00 Ondansetron HCl 4 mg Q4HP PRN IV 06/18/24 17:00 06/19/24 05:41 4 MG Docusate Sodium 100 mg BIDPRN PRN PO 06/18/24 17:00 Acetaminophen 650 mg Q6HP PRN PO 06/18/24 17:00 Morphine Sulfate 2 mg Q4HPRN PRN IV 06/18/24 17:00 06/19/24 10:38 2 MG Nitroglycerin 0.4 mg Q5MINP PRN SL 06/18/24 17:00 Morphine Sulfate 2 mg Q30M PRN IV 06/18/24 17:00 Donepezil HCl 5 mg DAILY PO 06/19/24 10:00 06/19/24 09:41 5 MG Lacosamide 100 mg BID PO 06/18/24 22:00 06/19/24 09:41 100 MG Levetiracetam 750 mg BID PO 06/18/24 22:00 06/19/24 09:41 750 MG Lisinopril 2.5 mg DAILY PO 06/19/24 10:00 Laboratory Results Laboratory Tests 06/18/24 15:19 Chemistry Test 06/18/24 15:19 Calcium Level 9.9 mg/dL (8.7-10.4) Assessment/Plan Assessment/Plan 79-year-old male with a known history of recurrent urinary bladder cancer status post multiple cystoscopies with the TURBT presented to the hospital with gross hematuria found to have 1. Gross hematuria 2. Status post multiple urinary bladder cancer surgeries, status post TURBT on Tuesday at [facility] 3. Seizure disorder 4. Hypertension next 6. Alzheimer dementia -continuous bladder irrigation, Urology consultation appreciated -discharge plan once hematuria resolves. Plan discussed with: Patient My Orders Orders - CELESTINA FITZGERALD MD Procedure Category Date Status Time Admit ADMIT 06/18/24 Transmitted 16:56 Code Status CODE 06/18/24 Transmitted 16:56 2 Gm Sodium Diet DIET 06/18/24 Transmitted Dinner Sodium Chloride 0.9% PHA 06/18/24 In Process 17:00 Hydrocodone-Acet PHA 06/18/24 In Process 5/325mg Tab (Dow 17:00 Ondansetron Hcl PHA 06/18/24 In Process (Zofran) 17:00 Docusate Sodium PHA 06/18/24 In Process Capsule (Colace 17:00 Fall Risk Precautions PEDRITO 06/18/[address] 16:56 Condition: Fair PEDRITO 06/18/24 In Process 16:56 Acetaminophen Tablet PHA 06/18/24 In Process (Tylenol Tablet) 17:00 Morphine Sulfate PHA 06/18/24 In Process Injection 17:00 Nitroglycerin PHA 06/18/24 In Process Sublingual (Ntrostat 17:00 Morphine Sulfate PHA 06/18/24 In Process Injection 17:00 Stat Ekg For Chest PEDRITO 06/18/24 In Process Pain 16:56 Notify Md Of Changes PEDRITO 06/18/24 In Process From Base 16:56 Cardiac/Vascular Sonographer For PEDRITO 06/18/24 In Process 24 Hours 16:56 Emergency Dysrhythmia PEDRITO 06/18/24 In Process Protocol 16:56 Rhythm Strips Once PEDRITO 06/18/24 In Process Every Shift 16:56 Oxygen By Nasal RT 06/18/24 Transmitted Cannula 16:56 Donepezil Tablet PHA 06/19/24 In Process (Aricept Tablet) 10:00 Lacosamide (Vimpat) PHA 06/18/24 In Process 22:00 Levetiracetam Tablet PHA 06/18/24 In Process (Keppra Tablet) 22:00 Lisinopril Tablet PHA 06/19/24 In Process (Zestril Tablet) 10:00 Date of Service: Jun 19, 2024 Billing Provider: CELESTINA FITZGERALD MD Common Visit Codes: NOT BILLABLE CELESTINA FITZGERALD MD Jun 19, 2024 14:49
--- NOTE | 2024-06-19 18:02 | DVHPN2 ---
Progress Note - Dictate Date Seen: Jun 19, 2024 Has the PT tested + for MRSA If YES, has PT been informed?: No Medical Necessity Reason Pt with a Central, PICC or Fol: Yes The following are medically ne: Sanon Catheter Medical Necessity Reason Gross hematuria requiring CBI Subjective Doing well, tolerating catheter with CBI vital signs Vital Sign Date Time Temp Pulse Resp B/P (MAP) Pulse Ox O2 Delivery O2 Flow Rate FiO2 06/19/24 17:12 75 18 141/83 06/19/24 16:30 97.7 96 97.7 06/19/24 08:00 Room Air* 0 21 Total Intake and Output 06/18/24 06/18/24 06/19/24 15:00 23:00 07:00 Intake Total 1000 ml Output Total 94699 ml 2500 ml Balance -86038 ml -1500 ml medications Current Medications Medications Dose Ordered Sig/Yadira Route Start Time Stop Time Status Last Admin Dose Admin Sodium Chloride 1,000 ml @ 120 mls/hr Q8H20M IV 06/18/24 17:00 06/19/24 17:26 120 MLS/HR Acetaminophen/ Hydrocodone Bitart 1 tab Q4HP PRN PO 06/18/24 17:00 Ondansetron HCl 4 mg Q4HP PRN IV 06/18/24 17:00 06/19/24 05:41 4 MG Docusate Sodium 100 mg BIDPRN PRN PO 06/18/24 17:00 Acetaminophen 650 mg Q6HP PRN PO 06/18/24 17:00 Morphine Sulfate 2 mg Q4HPRN PRN IV 06/18/24 17:00 06/19/24 16:42 2 MG Nitroglycerin 0.4 mg Q5MINP PRN SL 06/18/24 17:00 Morphine Sulfate 2 mg Q30M PRN IV 06/18/24 17:00 Donepezil HCl 5 mg DAILY PO 06/19/24 10:00 06/19/24 09:41 5 MG Lacosamide 100 mg BID PO 06/18/24 22:00 06/19/24 09:41 100 MG Levetiracetam 750 mg BID PO 06/18/24 22:00 06/19/24 09:41 750 MG Lisinopril 2.5 mg DAILY PO 06/19/24 10:00 objective San[address] catheter in place with minimal CBI running laboratory and microbiology Laboratory Tests 06/18/24 15:19 Test 06/18/24 15:19 Range/Units Serum Glucose 116 H 74-106 mg/dL Problem List Bladder cancer status post TURBT on 06/16/2024 at [facility] Assessment/Plan Continue CBI with titration to clear May discharge with Sanon catheter to gravity and follow up with [facility]rology service as planned Plan discussed with: Patient, Daughter CHANTELLE FARLEY MD Jun 19, 2024 18:02
[2024-06-19] MEDS: DOCUSATE SOD 100 MG CAP PO PRN (23:44)
[2024-06-20] VITALS (9 sets, daily range): BP systolic 126–158; BP diastolic 62–93; PULSE 71–85; RESP 15–18; TEMP 97.9–98.2; O2SAT 92–98
--- NOTE | 2024-06-20 14:03 | DVHPN2 ---
Progress Note Date Seen: Jun 20, 2024 Has the PT tested + for MRSA If YES, has PT been informed?: No Medical Necessity Reason Pt with a Central, PICC or Fol: Yes The following are medically ne: Carlson Catheter Reason for carlson catheter: Strict I&O Subjective Patient reports: No new complaints Review of Systems: HEENT:Normal, CVS:Normal, RESPIRATORY:Normal, GI:Normal, :Normal, MSK:Normal, NEURO:Normal Objective vital signs Vital Sign Date Time Temp Pulse Resp B/P (MAP) Pulse Ox O2 Delivery O2 Flow Rate FiO2 06/20/24 09:48 71 18 158/93 06/20/24 08:30 97.9 95 97.9 06/19/24 20:00 Room Air* 0 21 Total Intake and Output 06/19/24 06/19/24 06/20/24 15:00 23:00 07:00 Intake Total 2680 ml 1340 ml Output Total 6450 ml 9200 ml 1150 ml Balance -6450 ml -6520 ml 190 ml medications Current Medications Medications Dose Ordered Sig/Yadira Route Start Time Stop Time Status Last Admin Dose Admin Sodium Chloride 1,000 ml @ 120 mls/hr Q8H20M IV 06/18/24 17:00 06/20/24 13:14 120 MLS/HR Acetaminophen/ Hydrocodone Bitart 1 tab Q4HP PRN PO 06/18/24 17:00 Ondansetron HCl 4 mg Q4HP PRN IV 06/18/24 17:00 06/20/24 09:26 4 MG Docusate Sodium 100 mg BIDPRN PRN PO 06/18/24 17:00 06/20/24 09:26 100 MG Acetaminophen 650 mg Q6HP PRN PO 06/18/24 17:00 Morphine Sulfate 2 mg Q4HPRN PRN IV 06/18/24 17:00 06/20/24 09:12 2 MG Nitroglycerin 0.4 mg Q5MINP PRN SL 06/18/24 17:00 Morphine Sulfate 2 mg Q30M PRN IV 06/18/24 17:00 Donepezil HCl 5 mg DAILY PO 06/19/24 10:00 06/20/24 09:09 5 MG Lacosamide 100 mg BID PO 06/18/24 22:00 06/20/24 09:10 100 MG Levetiracetam 750 mg BID PO 06/18/24 22:00 06/20/24 09:11 750 MG Lisinopril 2.5 mg DAILY PO 06/19/24 10:00 Examination: GENERAL:Normal, HEENT:Normal, NECK:Normal, LUNGS:Normal, CVS:Normal, ABDOMEN:Normal, MSK:Normal, SKIN:Normal, NEURO:Normal, :Normal laboratory and microbiology Laboratory Tests 06/18/24 15:19 Test 06/18/24 15:19 Range/Units Serum Glucose 116 H 74-106 mg/dL Problem List/Assessment/Plan Problem List/Assessment/Plan #1 hematuria: still bloody, on continuous bladder irrigation, check cbc #2 h/o bladder cancer #3 s/p recent bladder surgery at [facility] #4 seizure disorder advance care planning- full code- time spent 18 mins Plan discussed with: Patient Date of Service: Jun 20, 2024 Billing Provider: HEATHER VORA MD Common Visit Codes: [id number] INP/OBS CARE(HIGH) Secondary Visit Codes: [id number] CARE PLAN 30 MINUTES HEATHER VORA MD Jun 20, 2024 14:03
[2024-06-20 14:51] LABS: Basophils # (auto) 0 10 ^3/uL (0-0.2); Basophils % (auto) 0.9 % (0.0-2.0); Eosinophils # (auto) 0.1 10 ^3/uL (0-0.8); Eosinophils % (auto) 2.9 % (0.0-7.0); Hematocrit 35.3 % (41.0-53.0); Hemoglobin 11.9 g/dL (13.5-17.5); Lymphocytes % (auto) 20.5 % (10.0-50.0); Mean Corpuscular Hemoglobin 32.9 pg (28.0-32.0); Mean Corpuscular Hgb Conc. 33.6 g/dL (32.0-36.0); Mean Corpuscular Volume 97.9 fL (80.0-100.0); Monocytes # (auto) 0.1 10 ^3/uL (0-1.3); Monocytes % (auto) 1.1 % (0.0-12.0); Neutrophils # (auto) 3.5 10 ^3/uL (1.6-8.6); Neutrophils % (auto) 74.6 % (37.0-80.0); Nucleated Red Blood Cells % 0.1 %; Platelet Count (auto) 122 10^3/uL (140-450); Red Blood Cells 3.61 10^6/uL (4.5-5.90); Red Cell Distribution Width 13.3 % (11.8-14.3); White Blood Cell 4.7 10^3/uL (4.4-10.8)
[2024-06-20 14:58] LABS: Chloride 108 mmol/L (98-107); Potassium 5.3 mmol/L (3.5-5.1); Sodium 139 mmol/L (136-145)
[2024-06-20 14:59] LABS: Anion Gap 3 (5-15); Calcium 9.3 mg/dL (8.7-10.4); Carbon Dioxide 28 mmol/L (20-31)
[2024-06-20 15:04] LABS: BUN/Creatinine Ratio 23.8 (10.0-20.0); Blood Urea Nitrogen 19 mg/dL (9-23); Glucose 86 mg/dL (74-106)
[2024-06-20] MEDS: SODIUM CHLORIDE 0.9% 1,000 ML IV SCH (17:32)
[2024-06-21] VITALS (7 sets, daily range): BP systolic 130–143; BP diastolic 70–91; PULSE 69–80; RESP 17–20; TEMP 97.7–97.9; O2SAT 90–96
[2024-06-21 12:15] LABS: Chloride 107 mmol/L (98-107); Potassium 4.4 mmol/L (3.5-5.1); Sodium 138 mmol/L (136-145)
[2024-06-21 12:16] LABS: Anion Gap 5 (5-15); Basophils # (auto) 0 10 ^3/uL (0-0.2); Basophils % (auto) 1.1 % (0.0-2.0); Calcium 9.7 mg/dL (8.7-10.4); Carbon Dioxide 26 mmol/L (20-31); Eosinophils # (auto) 0.1 10 ^3/uL (0-0.8); Eosinophils % (auto) 3.2 % (0.0-7.0); Hematocrit 35.5 % (41.0-53.0); Lymphocytes % (auto) 27.6 % (10.0-50.0); Mean Corpuscular Hemoglobin 33.1 pg (28.0-32.0); Mean Corpuscular Hgb Conc. 33.9 g/dL (32.0-36.0); Mean Corpuscular Volume 97.6 fL (80.0-100.0); Monocytes # (auto) 0.1 10 ^3/uL (0-1.3); Monocytes % (auto) 2.2 % (0.0-12.0); Neutrophils # (auto) 2.5 10 ^3/uL (1.6-8.6); Neutrophils % (auto) 65.9 % (37.0-80.0); Platelet Count (auto) 103 10^3/uL (140-450); Red Blood Cells 3.64 10^6/uL (4.5-5.90); Red Cell Distribution Width 13.1 % (11.8-14.3); White Blood Cell 3.7 10^3/uL (4.4-10.8)
[2024-06-21 12:21] LABS: BUN/Creatinine Ratio 18.2 (10.0-20.0); Blood Urea Nitrogen 14 mg/dL (9-23)
[2024-06-21 12:22] LABS: Glucose 125 mg/dL (74-106)
--- NOTE | 2024-06-21 14:41 | DVHDS2 ---
Discharge Summary Date of Admission Jun 18, 2024 at 16:56 Date of Discharge: June 21, 2024 Labs/Diagnostic Data: Laboratory Results Test 06/21/24 11:45 White Blood Count 3.7 10^3/uL (4.4-10.8) Red Blood Count 3.64 10^6/uL (4.5-5.90) Hemoglobin 12.0 g/dL (13.5-17.5) Hematocrit 35.5 % (41.0-53.0) Mean Corpuscular Volume 97.6 fL (80.0-100.0) Mean Corpuscular Hemoglobin 33.1 pg (28.0-32.0) Mean Corpuscular Hemoglobin Concent 33.9 g/dL (32.0-36.0) Red Cell Distribution Width 13.1 % (11.8-14.3) Platelet Count 103 10^3/uL (140-450) Mean Platelet Volume 8.4 fL (6.9-10.8) Neutrophils (%) (Auto) 65.9 % (37.0-80.0) Lymphocytes (%) (Auto) 27.6 % (10.0-50.0) Monocytes (%) (Auto) 2.2 % (0.0-12.0) Eosinophils (%) (Auto) 3.2 % (0.0-7.0) Basophils (%) (Auto) 1.1 % (0.0-2.0) Neutrophils # (Auto) 2.5 10 ^3/uL (1.6-8.6) Lymphocytes # (Auto) 1.0 10 ^3/uL (0.4-5.4) Monocytes # (Auto) 0.1 10 ^3/uL (0-1.3) Eosinophils # (Auto) 0.1 10 ^3/uL (0-0.8) Basophils # (Auto) 0 10 ^3/uL (0-0.2) Nucleated Red Blood Cells 0.0 % Sodium Level 138 mmol/L (136-145) Potassium Level 4.4 mmol/L (3.5-5.1) Chloride Level 107 mmol/L (98-107) Carbon Dioxide Level 26 mmol/L (20-31) Anion Gap 5 (5-15) Blood Urea Nitrogen 14 mg/dL (9-23) Creatinine 0.77 mg/dL (0.700-1.30) Glomerular Filtration Rate Calc 91 mL/min (>90) BUN/Creatinine Ratio 18.2 (10.0-20.0) Serum Glucose 125 mg/dL (74-106) Calcium Level 9.7 mg/dL (8.7-10.4) Other Laboratory Tests 06/21/24 11:45 Brief Hx & Hospital Course: see dictated note Condition at Discharge: Fair Final Diagnosis/Problems List hematuria Discharge Disposition: Home Discharge Instruct/Medications Diet: Regular Activity: No Restrictions, As Tolerated Follow Up/Referral: fu with [facility] Medications: resume home meds avoid asa/nsaids carlson with leg bag Discharge Statement: "Patient was advised to return to the ER or call 911 if any headaches, dizziness, shortness of breath, chest pain, abdominal pain, bleeding, fevers, or worsening of medical condition. Patient was counseled about treatment plan, medications, possible side effects, patientverbalized understanding. All questions were answered to the best of my ability. This discharge took greater then 30 minutes in planning, reviewing documentation, counseling the patient, and discussing with other team members." ASSESSMENT ASSESSMENT Assessment hematuria Date of Service: June 21, 2024 Billing Provider: HEATHER VORA MD Common Visit Codes: [id number]/OBS DISCH DAY >30min HEATHER VORA MD June 21, 2024 14:41
[2024-06-21] MEDS ORDERED: HYDR-4902 PO (14:42)
[2024-06-21] MEDS ORDERED: POLYETHYLENE GLYCOL 17 GM PWDR PO PRN (14:45)
[2024-06-21] MEDS: POLYETHYLENE GLYCOL 17 GM PWDR PO ONE ×2 (15:24→19:50)
--- NOTE | 2024-06-21 15:46 | DVHDS ---
DATE OF DISCHARGE: 06/21/2024 HISTORY OF PRESENT ILLNESS: The patient is a 79-year-old gentleman who was admitted with hematuria after he had a recent bladder surgery for bladder cancer at [facility]. He has a previous history of hypertension and seizure disorder. HOSPITAL COURSE: The patient was seen in Urology consult by Dr. Crocker. The patient was started on continuous bladder irrigations. The patient's hemoglobin dropped from 14.2 to 11.9. His renal ultrasound showed right renal cyst. The patient's hematuria is now resolved. He will be discharged home after bladder irrigation is stopped and the urine remains clear. He is to avoid aspirin and nonsteroidals and will be placed on Gary p.r.n. for pain. He will follow up with [facility] and his primary care. FINAL DIAGNOSES: * Hematuria, status post surgery for bladder cancer. * Anemia. * Hypertension. * Seizure disorder. Time spent in discharge plan and review of plan with the patient and sr solutions consultant and nursing was 38 minutes. MD LATRELL Conde/MATT TID: [id number] RECEIPT: [id number]
[2024-06-21] MEDS: LACTULOSE 20Gm/30ML SOLN PO ONE (19:49)
[2024-06-21 19:59] LABS: Basophils # (auto) 0 10 ^3/uL (0-0.2); Basophils % (auto) 1.2 % (0.0-2.0); Eosinophils # (auto) 0.2 10 ^3/uL (0-0.8); Eosinophils % (auto) 5.4 % (0.0-7.0); Hematocrit 33.2 % (41.0-53.0); Hemoglobin 11.3 g/dL (13.5-17.5); Lymphocytes # (auto) 0.8 10 ^3/uL (0.4-5.4); Lymphocytes % (auto) 29.4 % (10.0-50.0); Mean Corpuscular Hemoglobin 32.9 pg (28.0-32.0); Mean Corpuscular Hgb Conc. 34.1 g/dL (32.0-36.0); Mean Corpuscular Volume 96.3 fL (80.0-100.0); Monocytes # (auto) 0.1 10 ^3/uL (0-1.3); Neutrophils # (auto) 1.7 10 ^3/uL (1.6-8.6); Nucleated Red Blood Cells % 0.1 %; Platelet Count (auto) 98 10^3/uL (140-450); Red Blood Cells 3.45 10^6/uL (4.5-5.90); Red Cell Distribution Width 13.3 % (11.8-14.3); White Blood Cell 2.8 10^3/uL (4.4-10.8)
[2024-06-21 20:12] LABS: INR 0.99 (0.9-1.15); Partial Thromboplastin Time 27.9 SEC (24.5-34.5); Prothrombin Time 10.5 sec (9.3-11.8)
--- NOTE | 2024-06-21 21:17 | DVH ---
INDICATION: BLOOD AND CLOTS IN URINE. TECHNIQUE: Multiple real-time grayscale transabdominal sonographic images along with color and duplex Doppler of the uterus and ovaries were obtained. COMPARISON: None FINDINGS: Sanon catheter in bladder bladder appears to be collapsed around the Sanon catheter with a questionab le prominent wall. Prostate not measures IMPRESSION: 1. Sanon catheter in bladder and bladder is emptying
[2024-06-22] MEDS ORDERED: LACTULOSE 20Gm/30ML SOLN PO ONE (05:00)
[2024-06-22 09:00] VITALS: BP 144/84; PULSE 80; RESP 20; TEMP 97.7; O2SAT 100
--- NOTE | 2024-06-22 12:31 | DVHPN2 ---
Subjective The patient seen and examined at bedside. Urine is clear today. Reviewed: Care Plan, H&P, Labs, Medications, Previous Orders, Radiology Changes from previous H/P or p: No Changes Objective Vitals Vital Signs Date Time Temp Pulse Resp B/P (MAP) Pulse Ox O2 Delivery O2 Flow Rate FiO2 06/22/24 11:40 80 20 144/84 06/22/24 09:00 97.7 100 97.7 06/22/24 08:00 Room Air* 0 21 Intake/Output Intake and Output 06/22/24 07:00 Intake Total 1250 ml Output Total 4050 ml Balance -2800 ml Intake Oral 400 ml IV Total 850 ml Output Urine Total 4050 ml General Appearance: Alert, Oriented X3, Cooperative, No acute distress HEENT: Atraumatic, PERRLA, EOMI, Mucous membr. moist/pink Neck: Supple Lungs: Clear to auscultation, Normal air movement Cardiovascular: Regular rate, Normal S1, Normal S2, No murmurs, Gallops, Rubs Neuro: Cranial nerves 3-12 NL Psych/Mental Status: Mental status NL Medications Current Medications Medications Dose Ordered Sig/Yadira Route Start Time Stop Time Status Last Admin Dose Admin Acetaminophen/ Hydrocodone Bitart 1 tab Q4HP PRN PO 06/18/24 17:00 Ondansetron HCl 4 mg Q4HP PRN IV 06/18/24 17:00 06/22/24 11:23 4 MG Docusate Sodium 100 mg BIDPRN PRN PO 06/18/24 17:00 06/21/24 10:32 100 MG Acetaminophen 650 mg Q6HP PRN PO 06/18/24 17:00 Morphine Sulfate 2 mg Q4HPRN PRN IV 06/18/24 17:00 06/22/24 11:40 2 MG Nitroglycerin 0.4 mg Q5MINP PRN SL 06/18/24 17:00 Morphine Sulfate 2 mg Q30M PRN IV 06/18/24 17:00 Donepezil HCl 5 mg DAILY PO 06/19/24 10:00 06/21/24 09:42 5 MG Lacosamide 100 mg BID PO 06/18/24 22:00 06/22/24 11:25 100 MG Levetiracetam 750 mg BID PO 06/18/24 22:00 06/22/24 11:23 750 MG Lisinopril 2.5 mg DAILY PO 06/19/24 10:00 Polyethylene Glycol 17 gm DAILYPRN PRN PO 06/21/24 14:45 Laboratory Results Laboratory Tests 06/21/24 11:45 06/21/24 19:35 Coagulation Test 06/21/24 19:35 Prothrombin Time 10.5 sec (9.3-11.8) Prothrombin Time INR 0.99 (0.9-1.15) Activated Partial Thromboplast Time 27.9 SEC (24.5-34.5) Labs and/or images reviewed: Labs reviewed by me Assessment/Plan Assessment/Plan 1. Gross hematuria 2. Status post multiple urinary bladder cancer surgeries, status post TURBT on Tuesday at [facility] 3. Seizure disorder 4. Hypertension next 6. Alzheimer dementia Continue current management. Discharge home today. Plan discussed with: Patient Date of Service: June 22, 2024 Billing Provider: ALLIE STOVALL MD Common Visit Codes: [id number] INP/OBS CARE(HIGH) ALLIE STOVALL MD June 22, 2024 12:31
[2024-06-22 12:34] VITALS: BP 144/84; TEMP 36.5
[2024-06-22 13:00] VITALS: BP 154/97; PULSE 82; RESP 20; TEMP 97.5; O2SAT 96
== END 2024-06-22 14:28 | disposition home or self-care (01) | DRG 921 ==
LOC: ER 13:11 → OVERFLOW 16:56 → TELE-WESTW 16:59 → WEST WING 06-20 16:24
PROVIDERS: ADMIT Internal Medicine; ATTEND Internal Medicine
DX: N99.820 Postprocedural hemorrhage of a genitourinary system organ or structure following a genitourinary system procedure (principal); R31.0 Gross hematuria; G40.909 Epilepsy, unspecified, not intractable, without status epilepticus; I10 Essential (primary) hypertension; G30.9 Alzheimer's disease, unspecified; D64.9 Anemia, unspecified; F02.80 Dementia in other diseases classified elsewhere, unspecified severity, without behavioral disturbance, psychotic disturbance, mood disturbance, and anxiety; N28.1 Cyst of kidney, acquired; Z85.51 Personal history of malignant neoplasm of bladder; Z88.0 Allergy status to penicillin; Z88.8 Allergy status to other drugs, medicaments and biological substances; Z90.79 Acquired absence of other genital organ(s); Z79.899 Other long term (current) drug therapy; Z95.5 Presence of coronary angioplasty implant and graft; Z83.3 Family history of diabetes mellitus; Z96.659 Presence of unspecified artificial knee joint; Y84.8 Other medical procedures as the cause of abnormal reaction of the patient, or of later complication, without mention of misadventure at the time of the procedure; Y92.89 Other specified places as the place of occurrence of the external cause
CPT/HCPCS: 36415; 76775; 76857; 80048; 85025; 85610; 85730; 86850; 86900; 86901; G0378; J2405